=== PATIENT | female | born 1960 | race Caucasian/White ===

== ENCOUNTER 2016-09-12 15:32 | Emergency (ER) ==
[2016-09-12 15:32] VITALS: BMI 34.0
[2016-09-12 15:38] VITALS: BP 158/84; TEMP 98.4
--- NOTE | 2016-09-12 15:49 | ED.PDOC ---
General ED Provider: Dr. EMILY CALLAHAN JR Chief Complaint: Fall Stated Complaint: bg-slipped in tub and fell. has pain to right shoulder/neck and down arm, knot to forearm. pain to right wrist[End]1 hour 98.4 114 24 96% 158/84 10/10 pain mostly proximal forearm where she has a blue tender knot, morphine and lortab"make me itch" Time Seen by Physician: 15:48 Mode of Arrival: Walk-In Information Source: Patient Exam Limitations: No limitations Primary Care Provider: PANTERA MULLER Nursing and Triage Documentation Reviewed and Agree: No Review of Systems - Review Of Systems Constitutional: Reports: Malaise Eyes: Reports: No symptoms Ears, Nose, Mouth, Throat: Reports: No symptoms Respiratory: Reports: No symptoms Cardiac: Reports: No symptoms GI: Reports: No symptoms : Reports: No symptoms Musculoskeletal: Reports: Joint pain, Muscle pain Skin: Reports: Bruising, Change in color, Lumps Neurological: Reports: No symptoms Endocrine: Reports: No symptoms Hematologic/Lymphatic: Reports: No symptoms All Other Systems: Other Past Medical History - Past Medical History Previously Healthy: No Endocrine: Reports: Dyslipidemia Cardiovascular: Reports: CAD, Hypertension, CHF Respiratory: Reports: COPD Hematological: Reports: None Gastrointestinal: Reports: None, GERD Genitourinary: Reports: None, CKD Neuro/Psych: Reports: Migraine, Anxiety, Depression, Bipolar Disorder Musculoskeletal: Reports: Arthritis Cancer: Reports: None Last Menstrual Period: none Other Pertinent Past Medical History: fibrologramia - Surgical History General Surgical History: Reports: Hysterectomy, Tubal ligation, Cholecystectomy - Family History Family History: Reports: None - Social History Smoking Status: Current some day smoker Hx Substance Use: No Alcohol Screening: None Physical Exam - Physical Exam Appearance: Well-appearing, Obese Pain Distress: Moderate Musculoskeletal: Normal strength, ROM intact, No calf tenderness (tender upper extremity focal only on proximal volar forearm lesion), Edema Skin: Warm, Dry, Normal color Neurological: Sensation intact, Motor intact, Reflexes intact, Cranial nerves intact, Alert, Oriented Interpretation - Radiology Interpretation Radiology Interpretation By: Radiologist Radiology Results: Negative Exam Interpreted: CXR, Other (wrist elbow chest) Critical Care Note - Critical Care Note Total Time (mins): 0 Course - Course Orders, Labs, Meds: Orders Category Date Time Status Splint [ED SPLINT APPLICATION] .ONCE EMERGENCY 09/12/16 16:54 Active Ketorolac Tromethamine [Toradol] MEDS 09/12/16 15:53 Discontinued 60 mg IM ONCE STA CHEST, 1V AP ONLY Stat RADS 09/12/16 15:53 Completed ELBOW, RIGHT MIN 3 VIEWS Stat RADS 09/12/16 15:54 Completed WRIST, RIGHT 3 VIEWS Stat RADS 09/12/16 15:54 Completed Medications Discontinued Medications Generic Name Dose Route Start Last Admin Trade Name Freq PRN Reason Stop Dose Admin Ketorolac Tromethamine 60 mg 09/12/16 15:53 09/12/16 16:02 Toradol IM 09/12/16 15:54 60 mg ONCE STA Administration Vital Signs: Temp Pulse Resp BP Pulse Ox 09/12/16 15:32 98.4 F 114 H 24 158/84 H 96 Departure - Departure Time of Disposition: 16:50 Disposition: HOME SELF-CARE Discharge Problem: Falls Contusion of arm, right, multiple sites Qualifiers: Encounter type: initial encounter Qualifier Code: (S40.021A) Contusion of right upper arm, initial encounter Instructions: Contusion in Adults (ED) Condition: Good Pt referred to PMD for follow-up: Yes Additional Instructions: ice 20 minutes three times a day limit use of left arm for three days daily range of motion shoulder and elbow return if worse ibuprofen or Aleve for pain may use Toradol instead Prescriptions: Diphenhydramine HCl [Benadryl] 25 mg PO QID #30 capsule Ketorolac Tromethamine [Toradol] 10 mg PO QID PRN #20 tablet PRN Reason: PAIN Allergies/Adverse Reactions: Allergies acetaminophen [From [place]] Adverse Reaction (Verified 09/12/16 15:38) aspirin Adverse Reaction (Verified 09/12/16 15:38) codeine Adverse Reaction (Verified 09/12/16 15:38) hydrocodone [From [place]] Adverse Reaction (Verified 09/12/16 15:38) Penicillins Adverse Reaction (Verified 09/12/16 15:38) Home Medications: Ambulatory Orders Carvedilol 12.5 mg PO BID 04/26/15 Furosemide 40 mg PO DAILYWM 04/26/15 Albuterol Sulfate 0.083% Neb [Albuterol 0.083% Neb] 1 each IH QID PRN 08/27/15 Losartan Potassium [Cozaar] 50 mg PO DAILY 03/14/16 Simvastatin [Zocor] 20 mg PO DAILY 03/14/16 Clonazepam [Klonopin] 1 mg PO TID #90 03/16/16 Clonazepam 1 mg PO TID #90 06/08/16 Dextroamphetamine/Amphetamine [Adderall 30 Mg Tablet] 30 mg PO TID #60 Trazodone HCl 150 mg PO BEDTIME #30 06/08/16 Diphenhydramine HCl [Benadryl] 25 mg PO QID #30 capsule 09/12/16 Ketorolac Tromethamine [Toradol] 10 mg PO QID PRN #20 tablet 09/12/16
[2016-09-12] MEDS ORDERED: TORADOL IM STA (15:53)
--- NOTE | 2016-09-12 16:35 | DI ---
EXAM: RIGHT WRIST THREE VIEWS HISTORY: Wrist pain after fall FINDINGS: Bone and joint structures appear normal. No joint dislocation, displaced fracture or b one density abnormality. Soft tissues are within normal limits. No arthritic change. IMPRESSION: No fracture or dislocation identified.
--- NOTE | 2016-09-12 16:38 | DI ---
EXAM: Single frontal view of the chest HISTORY: Fall with neck pain. COMPARISON: Chest x-ray 06/22/[address] chest 10/30/2014. FINDINGS: The cardiomediastinal silhouette is normal. There is no pneumothorax or pleural effusion. There is no consolidation, nodule or mass. Left calcified granuloma is present. There is no osseo us abnormality or rib fracture identified. IMPRESSION: No acute cardiopulmonary process
--- NOTE | 2016-09-12 16:40 | DI ---
EXAM: Three views of the right elbow HISTORY: Fall with right elbow pain. COMPARISON: None FINDINGS: The radial head articulates normally with the capitellum. There is no displaced fracture o r dislocation of the right elbow. There is no lytic or blastic lesion. There are no displaced fat p ads. The joint space is maintained. IMPRESSION: No acute abnormality or displaced fracture of the right elbow.
[2016-09-12] MEDS ORDERED: BENADRYL IM STA (17:03)
== END 2016-09-12 17:26 | disposition home or self-care (01) ==
LOC: ED 15:32
DX: S40.021A Contusion of right upper arm, initial encounter (principal); S50.11XA Contusion of right forearm, initial encounter; M54.2 Cervicalgia; M25.531 Pain in right wrist; F17.210 Nicotine dependence, cigarettes, uncomplicated; W18.2XXA Fall in (into) shower or empty bathtub, initial encounter
CPT/HCPCS: 96372; 99283

== ENCOUNTER 2016-10-30 12:13 | Emergency (ER) ==
[2016-10-30 12:18] VITALS: BP 169/99; TEMP 98.2; BMI 36.9
[2016-10-30] MEDS ORDERED: DECADRON 4 MG/ML SDV IM STA (14:27)
[2016-10-30 15:00] LABS: ALBUMIN/GLOBULIN RATIO 1.08; ANION GAP 14.2; BILIRUBIN,TOTAL 0.31 mg/dL (0.00-1.20); BUN/CREATININE RATIO 27.65; CALCIUM 10.1 mg/dL (8.2-10.2); CREATININE 0.94 mg/dL (0.60-1.30); POTASSIUM 4.2 mmol/L (3.5-5.10); TOTAL PROTEIN 7.7 g/dL (6.4-8.2)
[2016-10-30 15:31] LABS: ERYTHROCYTE SEDIMENTATION RATE 34 mm/hr (0-20); ESR INTERNAL QC INTERNAL QC VALID
--- NOTE | 2016-10-30 15:50 | CT ---
EXAM: CT of the cervical spine without contrast History: Bilateral arm pain and trauma. Comparison: CT cervical spine 03/14/2016 Technique: Multiplanar CT images through the cervical spine were obtained without the administratio n of IV contrast Findings: Mild emphysema seen within the visualized lung apices. The visualized airway remains pat ent. No acute fracture or subluxation. Reversal of the normal cervical lordosis. No prevertebral soft t issue swelling. Predental space is not widened. Moderate disc space narrowing at C5-6 with osteoph ytes. Mild disc space narrowing seen elsewhere. C2-3: No significant bony central canal stenosis. Moderate bilateral bony neural foraminal narrowi ng secondary to uncovertebral and facet hypertrophy. C3-4: Mild bony central canal stenosis. Severe left and mild to moderate right bony neural foramin al narrowing secondary to uncovertebral and facet hypertrophy. C4-5: Mild to moderate bony central canal stenosis. Severe right and moderate left bony neural for aminal narrowing secondary to uncovertebral and facet hypertrophy. There are erosive osseous change s of the right facet joint. C5-6: Modest bony central canal stenosis. Severe left and moderate right bony neural foraminal paula rowing secondary to uncovertebral and facet hypertrophy. C6-7: Mild to moderate bony central canal stenosis. Moderate to severe right and moderate left bon y neural foraminal narrowing secondary to uncovertebral and facet hypertrophy. Impression: 1. No acute osseous abnormality of the cervical spine. 2. Degenerative changes with level by level analysis as detailed above. Erosive osseous changes of the right facet joint at C4-5. If pain persists, recommend further evaluation with MRI.
--- NOTE | 2016-10-30 16:23 | ED.PDOC ---
General ED Provider: Dr. KAELYN URIAS Chief Complaint: Non-specific Complaint Stated Complaint: out of pain meds and right shoulder pain Time Seen by Physician: 12:18 Mode of Arrival: Walk-In Information Source: Patient Exam Limitations: No limitations Primary Care Provider: LAMONT VALENTE Nursing and Triage Documentation Reviewed and Agree: Yes Musculoskeletal Complaint Exam - Shoulder Pain Complaint/Exam Mechanism of Injury: Reports: No known trauma Onset/Duration: chronic Symptoms Are: Still present Timing: Constant Initial Severity: Moderate Current Severity: Moderate Character: Reports: Aching Alleviating: Reports: None Aggravating: Reports: None Associated Signs and Symptoms: Denies: Swelling, Redness, Bruising, Fever, Weakness, Numbness, Tingling Related History: Reports: Similar episode Non-Orthopedic Risk Factors: Reports: None DVT Risk Factors: Reports: None Septic Arthritis Risk Factors: Reports: None Related Surgical History: Reports: None Limited Range of Motion: Present: Abduction, Adduction, Flexion, Extension, Internal rotation, External rotation, Rotator cuff muscles, Rotator cuff insertion Review of Systems - Review Of Systems Constitutional: Reports: No symptoms Eyes: Reports: No symptoms Ears, Nose, Mouth, Throat: Reports: No symptoms Respiratory: Reports: No symptoms Cardiac: Reports: No symptoms GI: Reports: No symptoms : Reports: No symptoms Musculoskeletal: Reports: Joint pain (right shoulder pain) Skin: Reports: No symptoms Neurological: Reports: No symptoms Endocrine: Reports: No symptoms Hematologic/Lymphatic: Reports: No symptoms All Other Systems: Reviewed and Negative Past Medical History - Past Medical History Previously Healthy: No Endocrine: Reports: Dyslipidemia Cardiovascular: Reports: CAD, Hypertension, CHF Respiratory: Reports: COPD Hematological: Reports: None Gastrointestinal: Reports: None, GERD Genitourinary: Reports: None, CKD Neuro/Psych: Reports: Migraine, Anxiety, Depression, Bipolar Disorder Musculoskeletal: Reports: Arthritis Cancer: Reports: None Last Menstrual Period: n/a Other Pertinent Past Medical History: fibrologramia - Surgical History General Surgical History: Reports: Hysterectomy, Tubal ligation, Cholecystectomy - Family History Family History: Reports: None - Social History Smoking Status: Current some day smoker Hx Substance Use: No Alcohol Screening: None Physical Exam - Physical Exam Appearance: Well-appearing, No pain distress, Well-nourished Eyes: AYESHA, EOMI, Conjunctiva clear ENT: Ears normal, Nose normal, Oropharynx normal Respiratory: Airway patent, Breath sounds clear, Breath sounds equal, Respirations nonlabored Cardiovascular: RRR, Pulses normal, No rub, No murmur GI/: Soft, Nontender, No masses, Bowel sounds normal, No Organomegaly Musculoskeletal: Normal strength, ROM intact, No edema, No calf tenderness Skin: Warm, Dry, Normal color Neurological: Sensation intact, Motor intact, Reflexes intact, Cranial nerves intact, Alert, Oriented Psychiatric: Affect appropriate, Mood appropriate Critical Care Note - Critical Care Note Total Time (mins): 0 Course - Course Hematology/Chemistry: 10/30/16 14:43 Orders, Labs, Meds: Lab Review 10/30/16 10/30/16 14:37 14:43 ESR 34 H Sodium 144 Potassium 4.2 Chloride 102 Carbon Dioxide 32 Anion Gap 14.2 BUN 26 H Creatinine 0.94 Estimated GFR (MDRD) 61.00 BUN/Creatinine Ratio 27.65 Glucose 98 Calcium 10.1 Total Bilirubin 0.31 AST 17 ALT 19 Alkaline Phosphatase 91 Total Protein 7.7 Albumin 4.0 Globulin 3.7 Albumin/Globulin Ratio 1.08 Orders Category Date Time Status COMPREHENSIVE METABOLIC PANEL Stat LAB 10/30/16 14:43 Completed ESR Stat LAB 10/30/16 14:37 Completed Dexamethasone 4 mg/ml Inj [Decadron 4 mg/ml Sdv] MEDS 10/30/16 14:27 Discontinued 8 mg IM ONCE STA CT CERVICAL SPINE W/O CONTRAST Stat RADS 10/30/16 14:38 Completed Medications Discontinued Medications Generic Name Dose Route Start Last Admin Trade Name Freq PRN Reason Stop Dose Admin Dexamethasone Sodium Phosphate 8 mg 10/30/16 14:27 10/30/16 14:41 Decadron 4 Mg/Ml Sdv IM 10/30/16 14:28 8 mg ONCE STA Administration Vital Signs: Temp Pulse Resp BP Pulse Ox 10/30/16 12:14 98.2 F 69 20 169/99 H 95 Departure - Departure Time of Disposition: 16:22 (sedrate is mildly elevated pt is placed on out pt steroids for 3 days and will examined by myself in a few days ) Disposition: HOME SELF-CARE Discharge Problem: Shoulder pain, right Instructions: Arthralgia (ED) Condition: Good Pt referred to PMD for follow-up: No Additional Instructions: Please call your Family Physician as soon as possible to schedule a follow-up appointment. Allergies/Adverse Reactions: Allergies acetaminophen [From [place]] Adverse Reaction (Verified 09/12/16 15:38) aspirin Adverse Reaction (Verified 09/12/16 15:38) codeine Adverse Reaction (Verified 09/12/16 15:38) hydrocodone [From [place]] Adverse Reaction (Verified 10/30/16 14:14) makes her nose itch Penicillins Adverse Reaction (Verified 09/12/16 15:38) Home Medications: Ambulatory Orders Carvedilol 12.5 mg PO BID 04/26/15 Furosemide 40 mg PO DAILYWM 04/26/15 Albuterol Sulfate 0.083% Neb [Albuterol 0.083% Neb] 1 each IH QID PRN 08/27/15 Losartan Potassium [Cozaar] 50 mg PO DAILY 03/14/16 Simvastatin [Zocor] 10 mg PO BEDTIME 03/14/16 Clonazepam [Klonopin] 1 mg PO TID PRN #90 03/16/16 Dextroamphetamine/Amphetamine [Adderall 30 Mg Tablet] 30 mg PO DAILY #60 Trazodone HCl 150 mg PO BEDTIME #30 06/08/16 Dextroamphetamine/Amphetamine [Adderall 15 mg Tablet] 15 mg PO BID 10/30/16 Ranitidine HCl 150 mg PO BID 10/30/16
[2016-10-30] MEDS ORDERED: ZOFRAN 4 MG/2 ML IM STA (16:38)
[2016-10-30] MEDS ORDERED: MORPHINE 4 MG/ML SYRINGE IM STA (16:38)
== END 2016-10-30 17:27 | disposition home or self-care (01) ==
LOC: ED 12:13
DX: M25.511 Pain in right shoulder (principal); R70.0 Elevated erythrocyte sedimentation rate; I10 Essential (primary) hypertension; F17.210 Nicotine dependence, cigarettes, uncomplicated; Z79.899 Other long term (current) drug therapy
CPT/HCPCS: 36415; 80053; 82550; 85651; 96372; 99283

== ENCOUNTER 2016-12-11 11:24 | Emergency (ER) ==
[2016-12-11 11:29] VITALS: BP 144/93; TEMP 98.2; BMI 34.0
--- NOTE | 2016-12-11 11:46 | ED.PDOC ---
General ED Provider: Dr. KAELYN URIAS Chief Complaint: Neck Pain Non-Injury Stated Complaint: neck and right upper ext chronic pain Time Seen by Physician: 11:30 (seen with cheryl at all times ) Mode of Arrival: Walk-In Information Source: Patient Exam Limitations: No limitations Primary Care Provider: LAMONT VALENTE Nursing and Triage Documentation Reviewed and Agree: Yes (no trauma chronic issue) Musculoskeletal Complaint Exam - Neck Pain Complaint/Exam Mechanism of Injury: Reports: No known trauma Onset/Duration: chronic Symptoms Are: Still present Timing: Constant Episodes Lasting: Weeks Initial Severity: Moderate Current Severity: Moderate Character: Reports: Aching, Throbbing, Spasmodic Aggravating: Reports: None Alleviating: Reports: None Associated Signs and Symptoms: Denies: Swelling, Redness, Bruising, Fever, Nuchal rigidity, Weakness, Headache, Paresthesia Related History: Reports: Similar episode Nexus Low Risk Criteria: No post-midline CS tender, No evidence of intoxicat., No Altered LOC, No focal neuro deficit, No distracting injuries Differential Diagnoses: Sprain, Strain Review of Systems - Review Of Systems Constitutional: Reports: No symptoms Eyes: Reports: No symptoms Ears, Nose, Mouth, Throat: Reports: No symptoms Respiratory: Reports: No symptoms Cardiac: Reports: No symptoms GI: Reports: No symptoms : Reports: No symptoms Musculoskeletal: Reports: Neck pain, Other (arm pain) Skin: Reports: No symptoms Neurological: Reports: No symptoms Endocrine: Reports: No symptoms Hematologic/Lymphatic: Reports: No symptoms All Other Systems: Reviewed and Negative Past Medical History - Past Medical History Previously Healthy: No Endocrine: Reports: Dyslipidemia Cardiovascular: Reports: CAD, Hypertension, CHF Respiratory: Reports: COPD Hematological: Reports: None Gastrointestinal: Reports: None, GERD Genitourinary: Reports: None, CKD Neuro/Psych: Reports: Migraine, Anxiety, Depression, Bipolar Disorder Musculoskeletal: Reports: Arthritis Cancer: Reports: None Last Menstrual Period: n/a Other Pertinent Past Medical History: fibrologramia - Surgical History General Surgical History: Reports: Hysterectomy, Tubal ligation, Cholecystectomy - Family History Family History: Reports: None - Social History Smoking Status: Current some day smoker Hx Substance Use: No Alcohol Screening: None Physical Exam - Physical Exam Appearance: Well-appearing, No pain distress, Well-nourished Eyes: AYESHA, EOMI, Conjunctiva clear ENT: Ears normal, Nose normal, Oropharynx normal Respiratory: Airway patent, Breath sounds clear, Breath sounds equal, Respirations nonlabored Cardiovascular: RRR, Pulses normal, No rub, No murmur GI/: Soft, Nontender, No masses, Bowel sounds normal, No Organomegaly Musculoskeletal: Normal strength, ROM intact, No edema, No calf tenderness Skin: Warm, Dry, Normal color Neurological: Sensation intact, Motor intact, Reflexes intact, Cranial nerves intact, Alert, Oriented Psychiatric: Affect appropriate, Mood appropriate Critical Care Note - Critical Care Note Total Time (mins): 0 Course - Course Orders, Labs, Meds: Orders Category Date Time Status EKG-(ED ONLY) Stat CARDIO 12/11/16 11:41 Stop Req CBC W/ AUTO DIFF Stat LAB 12/11/16 11:40 Stop Req COMPREHENSIVE METABOLIC PANEL Stat LAB 12/11/16 11:40 Stop Req CREATINE KINASE Stat LAB 12/11/16 11:40 Stop Req TROPONIN I Stat LAB 12/11/16 11:[address] CERVICAL SPINE W/O CONTRAST Stat RADS 12/11/16 11:41 Stop Req ELBOW, RIGHT MIN 3 VIEWS Stat RADS 12/11/16 11:41 Stop Req HUMERUS, RIGHT 2 VIEWS Stat RADS 12/11/16 11:41 Stop Req SHOULDER, RIGHT MIN 2V Stat RADS 12/11/16 11:41 Stop Req Vital Signs: Temp Pulse Resp BP Pulse Ox 12/11/16 11:26 98.2 F 78 16 144/93 H 96 Departure - Departure Time of Disposition: 11:46 (left AMA .) Disposition: HOME SELF-CARE Discharge Problem: Neck pain Instructions: Neck Pain (ED) Condition: Good Pt referred to PMD for follow-up: No Allergies/Adverse Reactions: Allergies aspirin Adverse Reaction (Verified 09/12/16 15:38) codeine Adverse Reaction (Verified 09/12/16 15:38) Penicillins Adverse Reaction (Verified 09/12/16 15:38) Home Medications: Ambulatory Orders Carvedilol 12.5 mg PO BID 04/26/15 Albuterol Sulfate 0.083% Neb [Albuterol 0.083% Neb] 1 each IH QID PRN 08/27/15 Losartan Potassium [Cozaar] 50 mg PO DAILY 03/14/16 Simvastatin [Zocor] 10 mg PO BEDTIME 03/14/16 Clonazepam [Klonopin] 1 mg PO TID PRN #90 03/16/16 Dextroamphetamine/Amphetamine [Adderall 30 Mg Tablet] 30 mg PO DAILY #60 Trazodone HCl 150 mg PO BEDTIME #30 06/08/16 Dextroamphetamine/Amphetamine [Adderall 15 mg Tablet] 15 mg PO BID 10/30/16
== END 2016-12-11 11:50 | disposition left against medical advice (07) ==
LOC: ED 11:24
DX: M54.2 Cervicalgia (principal); M79.601 Pain in right arm; G89.29 Other chronic pain; F17.210 Nicotine dependence, cigarettes, uncomplicated
CPT/HCPCS: 99284

== ENCOUNTER 2017-11-04 19:08 | Emergency (ER) ==
[2017-11-04 19:16] VITALS: BMI 39.5
[2017-11-04] MEDS ORDERED: ATIVAN IM STA (19:41)
[2017-11-04] MEDS ORDERED: ASPIRIN CHEWABLE PO STA (19:41)
[2017-11-04] MEDS ORDERED: CATAPRES PO STA ×2 (19:41→22:11)
[2017-11-04] MEDS ORDERED: ZOFRAN 4 MG/2 ML IM STA (19:41)
[2017-11-04] MEDS ORDERED: MORPHINE 2 MG/ML SYRINGE IM STA (19:41)
--- NOTE | 2017-11-04 21:41 | CT ---
Exam: CTA chest with intravenous contrast, PE protocol. MIP reformats are provided for interpretati on Comparison: 06/29/2013. Reason for exam: Chest pain, elevated D-dimer. Patchy ground-glass is seen in the left lung base. No pneumothorax, pleural effusion, or focal consolidation. The thyroid appears grossly unremarkable. The aorta is normal in course and caliber. No main, proximal, or segmental pulmonary arterial filling defect is seen. The heart is not enlarged. No suspicious appearing osteoblastic or osteolytic lesions. FINDINGS: 1. No main, proximal, or segmental pulmonary arterial filling defect is seen. 2. Mild patchy ground-glass in left lung base likely inflammatory. 3. No pneumothorax, pleural effusion, or focal consolidation. Report faxed at [id number] hours on 11/04/2017.
[2017-11-04 21:44] VITALS: TEMP 98.8
--- NOTE | 2017-11-04 22:09 | ED.PDOC ---
General ED Provider: Dr. ESTEE PIRES Chief Complaint: Chest Pain Stated Complaint: Came for the right side chest pain , she is been upset for 3 days, because of family problems, started having palpitation. BP is elevated Time Seen by Physician: 19:15 Mode of Arrival: Walk-In Information Source: Patient Primary Care Provider: MICHELLE BARILLAS Nursing and Triage Documentation Reviewed and Agree: Yes Reviewed sepsis parameters & appropriate labs ordered?: No System Inflammatory Response Syndrome: Not Applicable Sepsis Protocol: For patient's 13 years and over: Temp is 96.8 and below OR 101 and greater Pulse >90 BPM Resp >20/minute Acutely Altered Mental Status Are patient's symptoms suggestive of a new infection, such as: -Pneumonia -Skin, Soft Tissue -Endocarditis -UTI -Bone, Joint Infection -Implantable Device -Acute Abdominal Infection -Wound Infection -Meningitis -Blood Stream Catheter Infection -Unknown Cardiovascular Complaint Exam - Chest Pain Complaint/Exam Onset: Gradual Symptoms Are: Still present Timing: Constant Initial Severity: Moderate Current Severity: Moderate Location: Reports: Right anterior, Right lateral Pain Radiates: Reports: None Character: Reports: Aching, Tightness Aggravating: Reports: None Alleviating: Reports: None Associated Signs and Symptoms: Denies: Diaphoresis, Nausea, Vomiting, Fever, Palpitations, Cough, Hemoptysis, Back pain, Abdominal pain, Dizziness, Short of air, Calf pain, Calf swelling Related History: Reports: Similar episode Related Surgical History: Reports: None History of Healthcare-Acquired Pneumonia: Reports: No AMI/ACS Risk Factors: Reports: None TAD Risk Factors: Reports: None Pulmonary Embolism Risk Factors: Reports: None Prior Care for this Complaint: No Recent Stress Test: No Recent Echo/LV Function: No JVD Present: No Subcutaneous Emphysema Present: No Diminshed Breath Sounds: No Reproducible Chest Wall Pain: No Bilateral Pulses Present: No Unequal Pulses Noted: No If Risk Factors for AMI/ACS Consider: EKG, Cardiac Enzymes, Serial Studies, Oxygen, Aspirin Differential Diagnoses: ACS, CHF, Chest Wall Pain Review of Systems - Review Of Systems Constitutional: Reports: No symptoms Eyes: Reports: No symptoms Ears, Nose, Mouth, Throat: Reports: No symptoms Respiratory: Reports: No symptoms Cardiac: Reports: Chest pain GI: Reports: No symptoms : Reports: No symptoms Musculoskeletal: Reports: No symptoms Skin: Reports: No symptoms Neurological: Reports: No symptoms Endocrine: Reports: No symptoms Hematologic/Lymphatic: Reports: No symptoms All Other Systems: Reviewed and Negative Past Medical History - Past Medical History Previously Healthy: No Endocrine: Reports: Dyslipidemia Cardiovascular: Reports: CAD, Hypertension, CHF Respiratory: Reports: COPD Hematological: Reports: None Gastrointestinal: Reports: None, GERD Genitourinary: Reports: None, CKD Neuro/Psych: Reports: Migraine, Anxiety, Depression, Bipolar Disorder Musculoskeletal: Reports: Arthritis Cancer: Reports: None Last Menstrual Period: 2016 Other Pertinent Past Medical History: fibrologramia - Surgical History General Surgical History: Reports: Hysterectomy, Tubal ligation, Cholecystectomy - Family History Family History: Reports: None - Social History Smoking Status: Current some day smoker, Light tobacco smoker Hx Substance Use: No Alcohol Screening: None - Immunizations Tetanus Shot up to Date: Yes Physical Exam - Physical Exam Appearance: Well-appearing, No pain distress, Well-nourished Eyes: AYESHA, EOMI, Conjunctiva clear ENT: Ears normal, Nose normal, Oropharynx normal Respiratory: Airway patent, Breath sounds clear, Breath sounds equal, Respirations nonlabored Cardiovascular: RRR, Pulses normal, No rub, No murmur GI/: Soft, Nontender, No masses, Bowel sounds normal, No Organomegaly Musculoskeletal: Normal strength, ROM intact, No edema, No calf tenderness Skin: Warm, Dry, Normal color Neurological: Sensation intact, Motor intact, Reflexes intact, Cranial nerves intact, Alert, Oriented Psychiatric: Affect appropriate, Mood appropriate Interpretation - Radiology Interpretation Radiology Interpretation By: ED Physician Radiology Results: Negative Exam Interpreted: CXR - EKG Interpretation Time of EKG #1: 19:30 Rate: Normal Rhythm: Sinus Ectopy: None Re-Evaluation - Re-Evaluation Time of Re-Evaluation: 23:07 Status: Improved Critical Care Note - Critical Care Note Total Time (mins): 30 Course - Course Hematology/Chemistry: 11/04/17 19:50 11/04/17 19:50 Orders, Labs, Meds: Lab Review 11/04/17 11/04/17 11/04/17 19:50 19:50 19:50 WBC 9.20 RBC 4.76 Hgb 13.5 Hct 39.9 MCV 83.8 MCH 28.4 MCHC 33.8 RDW Coeff of Sheldon 13.7 Plt Count 217 Immature Gran % (Auto) 0.7 Neut % (Auto) 67.3 Lymph % (Auto) 22.2 Lee % (Auto) 6.8 Eos % (Auto) 2.3 Baso % (Auto) 0.7 Immature Gran # (Auto) 0.1 Neut # (Auto) 6.2 Lymph # (Auto) 2.0 Lee # (Auto) 0.6 Eos # (Auto) 0.2 Baso # (Auto) 0.1 D-Dimer (Manual) Sodium 143 Potassium 3.8 Chloride 103 Carbon Dioxide 26 Anion Gap 17.8 BUN 17 Creatinine 0.80 Estimated GFR (MDRD) 74.00 BUN/Creatinine Ratio 21.25 Glucose 180 H Calcium 9.3 Total Bilirubin 0.2 AST 21 ALT 37 Alkaline Phosphatase 89 Total Creatine Kinase 30 Troponin I 0.0140 B-Natriuretic Peptide 151 H Total Protein 7.0 Albumin 3.3 L Globulin 3.7 Albumin/Globulin Ratio 0.89 11/04/17 19:50 WBC RBC Hgb Hct MCV MCH MCHC RDW Coeff of Sheldon Plt Count Immature Gran % (Auto) Neut % (Auto) Lymph % (Auto) Lee % (Auto) Eos % (Auto) Baso % (Auto) Immature Gran # (Auto) Neut # (Auto) Lymph # (Auto) Lee # (Auto) Eos # (Auto) Baso # (Auto) D-Dimer (Manual) 904.99 Sodium Potassium Chloride Carbon Dioxide Anion Gap BUN Creatinine Estimated GFR (MDRD) BUN/Creatinine Ratio Glucose Calcium Total Bilirubin AST ALT Alkaline Phosphatase Total Creatine Kinase Troponin I B-Natriuretic Peptide Total Protein Albumin Globulin Albumin/Globulin Ratio Orders Category Date Time Status EKG-(ED ONLY) Stat CARDIO 11/04/17 19:37 Completed NPO REMINDER: IMAGING ONCE CARE 11/04/17 20:51 Completed IV [ED IV/MEDIPORT/POWERPORT] .ONCE EMERGENCY 11/04/17 21:10 Active BNP [B-TYPE NATRIURETIC PEPTIDE] Stat LAB 11/04/17 19:50 Completed CBC W/ AUTO DIFF Stat LAB 11/04/17 19:50 Completed COMPREHENSIVE METABOLIC PANEL Stat LAB 11/04/17 19:50 Completed CREATINE KINASE Stat LAB 11/04/17 19:50 Completed D-DIMER Stat LAB 11/04/17 19:50 Completed TROPONIN I Stat LAB 11/04/17 19:50 Completed 0.9 % Sodium Chloride [Saline Flush] MEDS 11/04/17 21:10 Ordered 1 syr IVF PRN PRN Aspirin [Aspirin Chewable] MEDS 11/04/17 19:41 Discontinued 324 mg PO ONCE STA Clonidine HCl [Catapres] MEDS 11/04/17 19:41 Discontinued 0.1 mg PO ONCE STA Clonidine HCl [Catapres] MEDS 11/04/17 22:11 Discontinued 0.1 mg PO ONCE STA Lorazepam Inj [Ativan] MEDS 11/04/17 19:41 Discontinued 1 mg IM ONCE STA Morphine Sulfate [Morphine 2 mg/ml Syringe] MEDS 11/04/17 19:41 Discontinued 2 mg IM ONCE STA Ondansetron HCl/Pf [Zofran 4 mg/2 ml] MEDS 11/04/17 19:41 Discontinued 4 mg IM ONCE STA CHEST, 2 VIEWS PA & LAT Stat RADS 11/04/17 19:[address] CHEST PE PROTOCOL Stat RADS 11/04/17 20:51 Completed Medications Generic Name Dose Route Start Last Admin Trade Name Freq PRN Reason Stop Dose Admin Sodium Chloride 1 syr 11/04/17 21:10 Saline Flush IVF PRN PRN To flush IV Discontinued Medications Generic Name Dose Route Start Last Admin Trade Name Freq PRN Reason Stop Dose Admin Aspirin 324 mg 11/04/17 19:41 11/04/17 19:56 Aspirin Chewable PO 11/04/17 19:42 324 mg ONCE STA Administration Clonidine 0.1 mg 11/04/17 19:41 11/04/17 19:57 Catapres PO 11/04/17 19:42 0.1 mg ONCE STA Administration Clonidine 0.1 mg 11/04/17 22:11 11/04/17 22:17 Catapres PO 11/04/17 22:12 0.1 mg ONCE STA Administration Lorazepam 1 mg 11/04/17 19:41 11/04/17 19:57 Ativan IM 11/04/17 19:42 1 mg ONCE STA Administration Morphine Sulfate 2 mg 11/04/17 19:41 11/04/17 19:56 Morphine 2 Mg/Ml Syringe IM 11/04/17 19:42 2 mg ONCE STA Administration Ondansetron HCl 4 mg 11/04/17 19:41 11/04/17 19:57 Zofran 4 Mg/2 Ml IM 11/04/17 19:42 4 mg ONCE STA Administration Vital Signs: Temp Pulse Resp BP Pulse Ox 11/04/17 22:55 67 20 144/98 H 94 L 11/04/17 21:43 98.8 F 72 14 174/103 H 96 11/04/17 19:09 99.6 F 78 20 179/108 H 96 FEI Risk Score FEI Risk Score: Risk Score Odds of by 30D 0 0.1 (0.1-0.2) 1 0.3 (0.2-0.3) 2 0.4 (0.3-0.5) 3 0.7 (0.6-0.9) 4 1.2 (1.0-1.5) 5 2.2 (1.9-2.6) 6 3.0 (2.5-3.6) 7 4.8 (3.8-6.1) Departure - Departure Time of Disposition: 22:12 Disposition: HOME SELF-CARE Discharge Problem: Chest pain, Panic attack Instructions: Chest Pain (DC) Condition: Stable Pt referred to PMD for follow-up: Yes IPMP verified?: No Additional Instructions: Increase hydration keep f/u with PMD keep checking Bp Prescriptions: Alprazolam [Xanax] 0.25 mg PO BID #20 tablet Lisinopril 20 mg PO BID #20 tablet Allergies/Adverse Reactions: Allergies aspirin Adverse Reaction (Verified 09/12/16 15:38) codeine Adverse Reaction (Verified 09/12/16 15:38) Penicillins Adverse Reaction (Verified 09/12/16 15:38) Home Medications: Ambulatory Orders Furosemide 40 mg PO DAILY 05/28/17 Risperidone 1 mg PO BEDTIME 06/01/17 Alprazolam [Xanax] 0.25 mg PO BID #20 tablet 11/04/17 Lisinopril 10 mg PO BID 11/04/17 Lisinopril 20 mg PO BID #20 tablet 11/04/17 Disposition Discussed With: Patient, Family
[2017-11-04 22:56] VITALS: BP 144/98
[2017-11-04] MEDS ORDERED: ZESTRIL PO STA (23:08)
--- NOTE | 2017-11-05 07:20 | DI ---
EXAM: Chest two view, frontal and lateral views. HISTORY: Chest pain. COMPARISON: 09/12/2016. FINDINGS: The heart size is normal. There is no pulmonary vascular congestion. The lungs are clear save for calcified granulomatous changes. No pleural effusion or pneumothorax is seen. No acute os seous abnormality identified. Since the prior study, there has been no significant interval change. IMPRESSION: No acute cardiopulmonary process.
== END 2017-11-04 23:25 | disposition home or self-care (01) ==
LOC: ED 19:08
DX: R07.9 Chest pain, unspecified (principal); F41.0 Panic disorder [episodic paroxysmal anxiety]; E78.5 Hyperlipidemia, unspecified; I25.10 Atherosclerotic heart disease of native coronary artery without angina pectoris; I10 Essential (primary) hypertension; N18.9 Chronic kidney disease, unspecified; K21.9 Gastro-esophageal reflux disease without esophagitis; F17.210 Nicotine dependence, cigarettes, uncomplicated; Z79.899 Other long term (current) drug therapy
CPT/HCPCS: 36415; 80053; 82550; 83880; 84484; 85025; 85379; 93005; 93010; 96372; 99284

== ENCOUNTER 2017-11-26 10:40 | Outpatient (CLI) ==
--- NOTE | 2017-11-26 12:16 | DI ---
Exam: Chest two-view HISTORY: Acute upper respiratory infection. Comparison: 11/04/2017. FINDINGS: Two views of the chest demonstrate moderately expanded lungs with no evidence of pneumonia or edema. The heart is normal in size and configuration. The thoracic aorta is partially calcified . Calcified granulomata are noted. The pulmonary vasculature is not congested. The skeletal structu res are intact. There are degenerative findings in the spine. IMPRESSION: No acute cardiopulmonary disease. Atherosclerosis and prior granulomatosis.
== END 2017-11-26 10:41 | disposition home or self-care (01) ==
LOC: RAD 10:40
PROVIDERS: ATTEND Emergency Medicine
DX: J06.9 Acute upper respiratory infection, unspecified (principal)

== ENCOUNTER 2017-12-20 13:43 | Inpatient (IN) ==
--- NOTE | 2017-12-20 15:14 | ED.PDOC ---
General ED Provider: Dr. PATRIZIA PATTEN Chief Complaint: Chest Pain Stated Complaint: Was exertional today and became dyspneic and chest discomfort. Became extremely anxious and a friend told her she may be in CHF so was brought to ER. Sighing and moaning in pain grabbing midepigastrium Time Seen by Physician: 14:50 Mode of Arrival: Wheelchair Information Source: Patient Exam Limitations: No limitations Primary Care Provider: ESTEE GUIDO Seen Within Last 72 Hours for Same Complaint By: ED Nursing and Triage Documentation Reviewed and Agree: Yes Reviewed sepsis parameters & appropriate labs ordered?: Yes System Inflammatory Response Syndrome: Not Applicable Sepsis Protocol: For patient's 13 years and over: Temp is 96.8 and below OR 101 and greater Pulse >90 BPM Resp >20/minute Acutely Altered Mental Status Are patient's symptoms suggestive of a new infection, such as: -Pneumonia -Skin, Soft Tissue -Endocarditis -UTI -Bone, Joint Infection -Implantable Device -Acute Abdominal Infection -Wound Infection -Meningitis -Blood Stream Catheter Infection -Unknown System Inflammatory Response Syndrome: Not Applicable Cardiovascular Complaint Exam - Chest Pain Complaint/Exam Symptoms Are: Resolved Timing: Intermittent Initial Severity: Severe Current Severity: Mild Location: Reports: Lower sternal, Left lateral Pain Radiates: Reports: None Character: Reports: Heaviness, Pressure, Squeezing Aggravating: Reports: Movement, Deep breaths Alleviating: Reports: Rest, Upright position Associated Signs and Symptoms: Reports: Nausea, Abdominal pain, Short of air Related History: Reports: Similar episode Related Surgical History: Reports: Cardiac Cath AMI/ACS Risk Factors: Reports: Obesity, Family history, Hypertension, CHF, Dyslipidemia. Denies: Cocaine use Review of Systems - Review Of Systems Constitutional: Reports: No symptoms Eyes: Reports: No symptoms Ears, Nose, Mouth, Throat: Reports: No symptoms Respiratory: Reports: No symptoms, Cough, Short of air Cardiac: Reports: No symptoms, Chest pain, Lightheadedness GI: Reports: No symptoms : Reports: No symptoms Musculoskeletal: Reports: No symptoms Skin: Reports: No symptoms Neurological: Reports: No symptoms Endocrine: Reports: No symptoms Hematologic/Lymphatic: Reports: No symptoms All Other Systems: Reviewed and Negative Past Medical History - Past Medical History Previously Healthy: No Endocrine: Reports: Dyslipidemia Cardiovascular: Reports: CAD, Hypertension, CHF Respiratory: Reports: COPD Hematological: Reports: None Gastrointestinal: Reports: None, GERD Genitourinary: Reports: None, CKD Neuro/Psych: Reports: Migraine, Anxiety, Depression, Bipolar Disorder Musculoskeletal: Reports: Arthritis Cancer: Reports: None Last Menstrual Period: hysterectomy Other Pertinent Past Medical History: fibrologramia - Surgical History General Surgical History: Reports: Hysterectomy, Tubal ligation, Cholecystectomy - Family History Family History: Reports: None - Social History Smoking Status: Current some day smoker, Light tobacco smoker Hx Substance Use: No Alcohol Screening: Occasionally Course - Course Hematology/Chemistry: 12/20/17 15:38 12/20/17 15:38 Orders, Labs, Meds: Lab Review 12/20/17 12/20/17 12/20/17 15:20 15:38 15:38 WBC 12.24 H RBC 4.91 Hgb 13.8 Hct 42.2 MCV 85.9 MCH 28.1 MCHC 32.7 RDW Coeff of Sheldon 15.1 H Plt Count 299 Immature Gran % (Auto) 0.8 Neut % (Auto) 69.1 Lymph % (Auto) 19.4 Miller % (Auto) 8.4 Eos % (Auto) 1.7 Baso % (Auto) 0.6 Immature Gran # (Auto) 0.1 Neut # (Auto) 8.5 H Lymph # (Auto) 2.4 Miller # (Auto) 1.0 Eos # (Auto) 0.2 Baso # (Auto) 0.1 Puncture Site Rrad O2 Saturation 96.0 ABG pH 7.468 H ABG pCO2 35.8 ABG pO2 75.0 L ABG HCO3 25.9 ABG Total CO2 27 ABG Base Excess 2 Charles Test + FiO2 % 21.0 Sodium 144 Potassium 3.7 Chloride 104 Carbon Dioxide 25 Anion Gap 18.7 BUN 42 H Creatinine 3.16 H Estimated GFR (MDRD) 15.00 BUN/Creatinine Ratio 13.29 Glucose 145 H Lactic Acid Calcium 10.1 Total Bilirubin 0.7 AST 15 ALT 15 Alkaline Phosphatase 85 Troponin I 0.0170 B-Natriuretic Peptide Total Protein 8.1 Albumin 3.8 Globulin 4.3 Albumin/Globulin Ratio 0.88 Influ A Molecular Assay Influ B Molecular Assay 12/20/17 12/20/17 12/20/17 15:38 15:38 16:23 WBC RBC Hgb Hct MCV MCH MCHC RDW Coeff of Sheldon Plt Count Immature Gran % (Auto) Neut % (Auto) Lymph % (Auto) Miller % (Auto) Eos % (Auto) Baso % (Auto) Immature Gran # (Auto) Neut # (Auto) Lymph # (Auto) Miller # (Auto) Eos # (Auto) Baso # (Auto) Puncture Site O2 Saturation ABG pH ABG pCO2 ABG pO2 ABG HCO3 ABG Total CO2 ABG Base Excess Charles Test FiO2 % Sodium Potassium Chloride Carbon Dioxide Anion Gap BUN Creatinine Estimated GFR (MDRD) BUN/Creatinine Ratio Glucose Lactic Acid 9.9 Calcium Total Bilirubin AST ALT Alkaline Phosphatase Troponin I B-Natriuretic Peptide < 10 Total Protein Albumin Globulin Albumin/Globulin Ratio Influ A Molecular Assay Negative by naat Influ B Molecular Assay Negative by naat Orders Category Date Time Status ABG DRAW REQUEST Stat CARDIO 12/20/17 15:21 Completed EKG-(ED ONLY) Stat CARDIO 12/20/17 15:20 Completed IV [ED IV/MEDIPORT/POWERPORT] .ONCE EMERGENCY 12/20/17 15:20 Active ABG Stat LAB 12/20/17 15:20 Completed BLOOD CULTURE (ED ONLY) Stat LAB 12/20/17 15:38 Received BNP [B-TYPE NATRIURETIC PEPTIDE] Stat LAB 12/20/17 15:38 Completed CBC W/ AUTO DIFF Stat LAB 12/20/17 15:38 Completed CMP [COMPREHENSIVE METABOLIC PANEL] Stat LAB 12/20/17 15:38 Completed FLU A & B MOLECULAR [FLU A/B MOLECULAR] Stat LAB 12/20/17 16:23 Completed LACTIC ACID Stat LAB 12/20/17 15:38 Completed TROPONIN I Stat LAB 12/20/17 15:38 Completed 0.9 % Sodium Chloride [Saline Flush] MEDS 12/20/17 15:20 Active 1 syr IVF PRN PRN Lorazepam [Ativan] MEDS 12/20/17 15:23 Discontinued 0.5 mg IVP ONCE STA Pantoprazole Sodium [Protonix IV] MEDS 12/20/17 15:22 Discontinued 40 mg IVP ONCE STA CHEST, 1V AP ONLY Stat RADS 12/20/17 15:20 Completed Medications Generic Name Dose Route Start Last Admin Trade Name Freq PRN Reason Stop Dose Admin Sodium Chloride 1 syr 12/20/17 15:20 12/20/17 15:46 Saline Flush IVF 1 syr PRN PRN Administration To flush IV Discontinued Medications Generic Name Dose Route Start Last Admin Trade Name Bharti PRN Reason Stop Dose Admin Lorazepam 0.5 mg 12/20/17 15:23 12/20/17 15:47 Ativan IVP 12/20/17 15:24 0.5 mg ONCE STA Administration Pantoprazole Sodium 40 mg 12/20/17 15:22 12/20/17 15:43 Protonix Iv IVP 12/20/17 15:23 40 mg ONCE STA Administration Vital Signs: Temp Pulse Resp BP Pulse Ox 12/20/17 13:45 98.6 F 93 H 24 105/70 94 L FEI Risk Score FEI Risk Score: Risk Score Odds of by 30D 0 0.1 (0.1-0.2) 1 0.3 (0.2-0.3) 2 0.4 (0.3-0.5) 3 0.7 (0.6-0.9) 4 1.2 (1.0-1.5) 5 2.2 (1.9-2.6) 6 3.0 (2.5-3.6) 7 4.8 (3.8-6.1) Departure - Departure Time of Disposition: 17:30 Disposition: ADMITTED INPATIENT Discharge Problem: Acute renal failure, CHF NYHA class III (symptoms with mildly strenuous activities) Condition: Poor IPMP verified?: No Additional Instructions: Discussed with Dr Ulloa for admission orders Allergies/Adverse Reactions: Allergies aspirin Adverse Reaction (Verified 12/20/17 13:55) codeine Adverse Reaction (Verified 12/20/17 13:55) Penicillins Adverse Reaction (Verified 12/20/17 13:55) Home Medications: Ambulatory Orders Clonazepam 1 mg PO TID 11/12/17 Dextroamphetamine/Amphetamine [Dextroamp-Amphetamin 30 Mg Tab] 30 mg PO BID 04/23 Trazodone HCl 150 mg PO BEDTIME 11/12/17 Disposition Discussed With: Patient (Discussed with Dr Ulloa for admission orders)
[2017-12-20] MEDS ORDERED: PROTONIX IV IVP STA (15:22)
[2017-12-20] MEDS ORDERED: ATIVAN IVP STA (15:23)
--- NOTE | 2017-12-20 16:23 | DI ---
EXAM: Chest one view HISTORY: Chest pain congestion COMPARISON: 11/26/2017 TECHNIQUE: Single view of the chest was performed FINDINGS: No airspace consolidation. Granulomatous calcification. There is no pleural effusion or pneumothorax. The heart is normal in size. The mediastinal contour is normal. There are no acute a bnormalities of the bones. IMPRESSION: No acute cardiopulmonary process.
[2017-12-20] MEDS ORDERED: SODIUM CHLORIDE 1,000 ML IV STA (17:38)
[2017-12-20 18:34] VITALS: BMI 38.9
[2017-12-20] MEDS ORDERED: DEMEROL 50 MG/ML VIAL IVP PRN (20:25)
[2017-12-20] MEDS ORDERED: NON-FORMULARY MEDICATION (Trazodone Hcl [Trazodone Hcl] 150 MG) PO SCH (21:00)
[2017-12-20] MEDS ORDERED: COREG PO SCH (21:00)
[2017-12-20] MEDS ORDERED: [UNRECOGNIZED DRUG - OTHER] PO SCH (21:00)
[2017-12-20] MEDS ORDERED: DEXTROAMPHETAMINE PO SCH (21:00)
[2017-12-20] MEDS ORDERED: NON-FORMULARY MEDICATION (Clonazepam [Clonazepam] 1 MG) PO SCH (21:00)
[2017-12-20] MEDS ORDERED: NON-FORMULARY MEDICATION (Lisinopril [Lisinopril] 20 MG) PO SCH (21:00)
[2017-12-20] MEDS ORDERED: AMPHETAMINE PO SCH (21:00)
[2017-12-20] MEDS ORDERED: MAXITROL OPTH SUSP OP SCH (21:00)
[2017-12-20] MEDS: SODIUM CHLORIDE 1,000 ML IV SCH (21:33)
[2017-12-20] MEDS ORDERED: COREG ONE (21:41)
[2017-12-20] MEDS ORDERED: DEMEROL 50 MG/ML VIAL ONE (21:41)
[2017-12-20] MEDS ORDERED: KLONOPIN ONE (21:42)
[2017-12-20] MEDS ORDERED: ZESTRIL ONE (21:43)
[2017-12-20] MEDS ORDERED: DESYREL ONE (21:43)
[2017-12-20] MEDS: DUONEB NEB SCH (22:05)
[2017-12-20] MEDS: SOLU-MEDROL 125 MG IVP SCH (22:08)
[2017-12-20] MEDS ORDERED: SODIUM CHLORIDE 250 ML IV ONE (22:25)
[2017-12-20] MEDS: PREDNISONE PO SCH (23:21)
[2017-12-21] MEDS: DUONEB NEB SCH ×4 (04:35→22:14)
[2017-12-21] MEDS: SOLU-MEDROL 125 MG IVP SCH ×3 (05:37→22:10)
[2017-12-21] MEDS ORDERED: LASIX TAB PO SCH (06:30)
[2017-12-21] MEDS ORDERED: NON-FORMULARY MEDICATION (Mometasone Furoate [Nasonex] 17 GM) NS SCH (09:00)
[2017-12-21] MEDS: PREDNISONE PO SCH (09:00)
[2017-12-21] MEDS ORDERED: NON-FORMULARY MEDICATION (Loratadine [Claritin] 10 MG) PO SCH (09:00)
[2017-12-21] MEDS: SODIUM CHLORIDE 1,000 ML IV SCH (09:20)
[2017-12-21] MEDS: FLEXERIL PO SCH ×3 (09:22→21:14)
[2017-12-21] MEDS: CLARITIN PO SCH (09:23)
[2017-12-21] MEDS: ZESTRIL PO SCH ×2 (09:24→21:13)
[2017-12-21] MEDS: COREG PO SCH ×2 (09:24→17:21)
[2017-12-21] MEDS: ANORO ELLIPTA 62.5-25 MCG INH IH SCH (09:25)
[2017-12-21] MEDS: FLONASE NAS SCH (09:25)
[2017-12-21] MEDS: KLONOPIN PO SCH ×3 (09:41→21:13)
--- NOTE | 2017-12-21 15:08 | CT ---
EXAM: CT abdomen pelvis without contrast HISTORY: Diarrhea with nausea and vomiting for [id number] days with prior appendectomy COMPARISON: CT abdomen pelvis 11/10/2015 and multiple priors TECHNIQUE: Serial axial images of the abdomen pelvis were performed from the lung bases through the inferior pelvis without contrast. These were viewed in multiple planes. FINDINGS: There is mild bibasilar atelectasis. Evaluation is limited due to lack of contrast. The liver is unremarkable. The gallbladder is mildly distended. The right adrenal gland demonstrates a 1.2 cm nodule with Hounsfield units suggestive of an adenoma. The left adrenal gland is normal. The kidneys demonstrate no hydronephrosis or hydrour eter. There is a hyperdense exophytic nodule in the inferior pole of the left kidney measuring 0.7 c m in diameter. The spleen is unremarkable. The pancreas is unremarkable. The stomach is distended. Small bowel in the abdomen pelvis is unremarkable. The the colon demonstrates diverticulosis without diverticulitis. Urinary bladder is distended. There has been a prior hysterectomy. There is no free air, free fluid or lymphadenopathy. There is moderate atherosclerotic disease. The osseous structu res demonstrate pars defects at L5 with 1.3 cm of anterolisthesis. IMPRESSION: 1. No acute intra-abdominal or pelvic process to account for patient's symptoms. 2. Diverticulosis without diverticulitis. 3. Right adrenal adenoma is unchanged. 4. Unchanged hyperdense nodule extending off the left kidney is unchanged likely representing a hemo rrhagic cyst. 5. Degenerative disease of the spine with pars defects at L5 and 1.3 cm of anterolisthesis.
[2017-12-21] MEDS: AMPHETAMINE PO SCH ×2 (15:11→21:17)
[2017-12-21] MEDS: [UNRECOGNIZED DRUG - OTHER] PO SCH ×2 (15:11→21:17)
[2017-12-21] MEDS: DEXTROAMPHETAMINE PO SCH ×2 (15:11→21:17)
--- NOTE | 2017-12-21 15:12 | PN ---
DATE OF SERVICE: 12/21/17 SUBJECTIVE: Still short of breath some, coughing. No fever or chills. Had one episode of he diarrhea. Complaining of the pain and hurting all over the body. REVIEW OF SYSTEMS: CONSTITUTIONAL: No fever, no chills. HEENT: Normal. ENDOCRINE: No weight gain, no weight loss. CVS: No angina symptoms. No CHF symptoms. No palpitations. No atypical chest pain for CAD. No shortness of breath. No PND, no orthopnea. RESPIRATORY: Cough, no hemoptysis. GI: No nausea, no vomiting. No abdominal pain. : No hematuria. No polyuria. MUSCULOSKELETAL: No joint swelling. PSYCHIATRIC: Not anxious. No depression. No suicidal thoughts. No homicidal thoughts. SKIN: Intact. No rash. PHYSICAL EXAMINATION: V/S: Blood pressure 114/72, respiratory rate 20, heart rate 83, temperature 97.6 with saturation 94%. HEENT: Normocephalic, atraumatic. Mucosa dry. Pallor positive. No icterus. NECK: Supple. No JVD, no carotid bruit. No lymphadenopathy. LUNGS: Clear to auscultation. No rales or rhonchi. HEART: S1, S2 normal. No S3. No murmur, gallop or regurgitation. ABDOMEN: Soft, nontender. Bowel sounds active. No rigidity. No rebound or guarding. No CVA tenderness. EXTREMITIES: No cyanosis, clubbing or pedal edema. MUSCULOSKELETAL: No joint swelling. NEUROLOGIC: Awake, alert, oriented times three. No focal deficit. LYMPHATIC: No lymph nodes palpable. SKIN: Intact. LABS: WBC 12.24, hgb 13.8, hct 42.2, plt count 299, sodium 142, potassium 3.7, chloride 104, bicarb 25, BUN 42, creatinine 3.16, glucose 145. ASSESSMENT: 1. COPD exacerbation secondary to the bronchitis 2. Acute renal failure 3. Dehydration 4. Gastroenteritis 5. CHF 6. Dyslipidemia 7. COPD PLAN: 1. CBC and CMP today 2. IV fluids 3. Flexeril Q 8 hours 4. DUO NEBS 5. CT of abdomen and pelvis 6. Solu-Medrol 60 Q 8 hours 7. Daily I&O TIME SPENT: More than 35 minutes MTDD
--- NOTE | 2017-12-21 15:44 | HP ---
DATE OF SERVICE: 12/20/17 CHIEF COMPLAINT: Shortness of breath and chest pain HISTORY OF PRESENT ILLNESS: This is a 57 year old female came with the left epigastric chest pain 20-30 minutes ago. Feels like someone is sitting on the chest, hyperventilating. Tingling and numbness in the hands, was also having coughing and congestion for one week. The patient was seen in the office on the December 13 for the cough and congestion and shortness of breath and was given some antibiotics and steroids. The patient says that it was not getting better. Also the patient not been drinking enough water and still continued to smoke. The patient came to the emergency room as the shortness of breath and chest pain was getting worse also noted that the patient did complain that she vomited 2-3 times the day before and the diarrhea real bad yesterday one time and did get better today. No fever or chills when she came to the emergency room. The patient was seen by the ER physician. Saturation was 94%, WBC was 12,000. ABG done showed the pH 7.468, pCO2 35.8, pO2 75. BUN was 42 and creatinine was 3.16. The previous BUN and creatinine was normal 17 and 0.8. At that time the patient was admitted to the hospital for COPD exacerbation and bronchitis, acute on chronic heart failure and acute renal failure from dehydration. REVIEW OF SYSTEMS: CONSTITUTIONAL: No fever, no chills. HEENT: Normal. ENDOCRINE: No weight gain; no weight loss. CVS: Chest pain. No PND, no orthopnea. Shortness of breath. No PND, no orthopnea. RESPIRATORY: Cough, Congestion. No hemoptysis. GI: Nausea, Vomiting. No abdominal pain. No melena. Diarrhea. : No hematuria. No polyuria. MUSCULOSKELETAL: No joint swelling. PSYCHIATRIC: Not anxious. No depression. No suicidal thoughts. No homicidal thoughts. SKIN: Intact, no open lesions. PAST MEDICAL HISTORY: Coronary artery disease Hypertension CHF Headaches COPD GERD History of ovarian cancer Chronic pain Anxiety Bipolar disorder PAST SURGICAL HISTORY: Tubal ligation Dilation and Curettage PERSONAL HISTORY: The patient is and lives with the . The patient patient is a smoker. No alcohol or illicit drug use. FAMILY HISTORY: CHF MEDICATIONS: Trazodone Adderall Clonazepam Prednisone Inderal Claritin Nasonex Lasix Coreg Lisinopril ALLERGIES: Aspirin Codeine Penicillin PHYSICAL EXAMINATION: V/S: Blood pressure 105/70, respiratory rate 24, heart rate 93, temperature 98.6 with saturation 94.%. HEENT: Atraumatic, normocephalic. No scleral icterus. Mucosa dry. NECK: Supple. No JVD, no bruit. No lymphadenopathy. No thyromegaly. HEART: S1, S2 normal. No murmur. No cyanosis or clubbing. No ascites. LUNGS: Decreased and basilar crackles. Mild expiratory wheeze. Clear to auscultation. No rales or rhonchi. ABDOMEN: Soft,Discomfort all over. Bowel sounds are active. No CVA tenderness. No rigidity or guarding. EXTREMITIES: No pedal edema. No cyanosis or clubbing MUSCULOSKELETAL: Normal joints, no swelling. NEUROLOGIC: The patient is alert and oriented. SKIN: Intact; no open lesions. LYMPHATIC: No lymph nodes palpable. LABS: Sodium 144, potassium 3.7, chloride 104, bicarb 25, BUN 42, creatinine 3.15, glucose 145, WBC 12.24, Hgb 13.8, hct 32.2, plt count 290. ASSESSMENT: 1. COPD Exacerbation secondary to the bronchitis 2. Acute renal failure 3. Dehydration 4. Diarrhea 5. Hypertension 6. CAD 7. CHF 8. Dyslipidemia PLAN: 1. Admit the patient to the regular floor 2. CBC and CMP today and daily 3. Cardiac enzymes and Troponin 4. IV fluids 5. Zofran 6. Breathing treatments Will follow the patient in daily rounds. TIME SPENT: MORE THAN 70 minutes MTDD
[2017-12-21] MEDS: DEMEROL 50 MG/ML VIAL IVP PRN (18:40)
[2017-12-21] MEDS: DESYREL PO SCH (21:13)
[2017-12-22] MEDS: DUONEB NEB SCH ×4 (04:30→22:04)
[2017-12-22] MEDS: LASIX TAB PO SCH (05:46)
[2017-12-22] MEDS: SOLU-MEDROL 125 MG IVP SCH ×3 (05:47→22:35)
[2017-12-22] MEDS: CLARITIN PO SCH (08:57)
[2017-12-22] MEDS: FLEXERIL PO SCH ×3 (08:57→20:24)
[2017-12-22] MEDS: FLONASE NAS SCH (08:57)
[2017-12-22] MEDS: ANORO ELLIPTA 62.5-25 MCG INH IH SCH (08:57)
[2017-12-22] MEDS: AMPHETAMINE PO SCH ×2 (08:58→22:19)
[2017-12-22] MEDS: [UNRECOGNIZED DRUG - OTHER] PO SCH ×2 (08:58→22:19)
[2017-12-22] MEDS: DEXTROAMPHETAMINE PO SCH ×2 (08:58→22:19)
[2017-12-22] MEDS: KLONOPIN PO SCH ×3 (08:58→20:24)
[2017-12-22] MEDS: ZESTRIL PO SCH ×2 (08:58→20:26)
[2017-12-22] MEDS: COREG PO SCH ×2 (08:58→17:31)
[2017-12-22] MEDS: SODIUM CHLORIDE 1,000 ML IV SCH (11:20)
[2017-12-22] MEDS: DEMEROL 50 MG/ML VIAL IVP PRN ×2 (13:04→21:36)
[2017-12-22] MEDS: DESYREL PO SCH (20:24)
[2017-12-23] MEDS: DUONEB NEB SCH ×4 (04:50→22:42)
[2017-12-23] MEDS: SOLU-MEDROL 125 MG IVP SCH ×2 (04:50→12:59)
[2017-12-23] MEDS: LASIX TAB PO SCH (06:06)
[2017-12-23] MEDS: DEMEROL 50 MG/ML VIAL IVP PRN (08:29)
[2017-12-23] MEDS: FLONASE NAS SCH (08:30)
[2017-12-23] MEDS: KLONOPIN PO SCH ×3 (08:30→21:36)
[2017-12-23] MEDS: FLEXERIL PO SCH ×3 (08:30→21:35)
[2017-12-23] MEDS: ANORO ELLIPTA 62.5-25 MCG INH IH SCH (08:30)
[2017-12-23] MEDS: ZESTRIL PO SCH ×2 (08:30→21:36)
[2017-12-23] MEDS: CLARITIN PO SCH (08:31)
[2017-12-23] MEDS: COREG PO SCH ×2 (08:31→17:24)
[2017-12-23] MEDS: AMPHETAMINE PO SCH ×2 (10:00→21:38)
[2017-12-23] MEDS: DEXTROAMPHETAMINE PO SCH ×2 (10:00→21:38)
[2017-12-23] MEDS: [UNRECOGNIZED DRUG - OTHER] PO SCH ×2 (10:00→21:38)
[2017-12-23] MEDS: SODIUM CHLORIDE 1,000 ML IV SCH ×2 (10:53)
[2017-12-23] MEDS: PREDNISONE PO SCH (17:24)
[2017-12-23] MEDS: DESYREL PO SCH (21:36)
[2017-12-24] MEDS: DUONEB NEB SCH ×3 (05:00→20:15)
[2017-12-24] MEDS: LASIX TAB PO SCH (05:34)
[2017-12-24] MEDS ORDERED: CEPACOL SORE THROAT LOZENGE MUCOUSMEMB PRN (08:37)
[2017-12-24] MEDS: FLEXERIL PO SCH ×3 (08:57→20:55)
[2017-12-24] MEDS: COREG PO SCH ×2 (08:57→16:32)
[2017-12-24] MEDS: CLARITIN PO SCH (08:57)
[2017-12-24] MEDS: KLONOPIN PO SCH ×3 (08:57→20:53)
[2017-12-24] MEDS: ZESTRIL PO SCH ×2 (08:58→20:54)
[2017-12-24] MEDS: FLONASE NAS SCH (08:58)
[2017-12-24] MEDS: ANORO ELLIPTA 62.5-25 MCG INH IH SCH (08:58)
[2017-12-24] MEDS: PREDNISONE PO SCH ×2 (08:58→16:31)
[2017-12-24] MEDS: SODIUM CHLORIDE 1,000 ML IV SCH (09:18)
[2017-12-24] MEDS: [UNRECOGNIZED DRUG - OTHER] PO SCH ×2 (11:12→22:54)
[2017-12-24] MEDS: DEXTROAMPHETAMINE PO SCH ×2 (11:12→22:54)
[2017-12-24] MEDS: AMPHETAMINE PO SCH ×2 (11:12→22:54)
--- NOTE | 2017-12-24 15:22 | PN ---
DATE OF SERVICE: 12/22/17 SUBJECTIVE: The patient is complaining about coughing and congestion and shortness of breath is slightly improved from yesterday. BUN and Creatinine is gradually getting better. REVIEW OF SYSTEMS: CONSTITUTIONAL: No fever, no chills. HEENT: Normal. ENDOCRINE: No weight gain, no weight loss. CVS: No angina symptoms. No CHF symptoms. No palpitations. No atypical chest pain for CAD. No shortness of breath. No PND, no orthopnea. RESPIRATORY: No cough, no hemoptysis. GI: No nausea, no vomiting. No abdominal pain. : No hematuria. No polyuria. MUSCULOSKELETAL: No joint swelling. PSYCHIATRIC: Not anxious. No depression. No suicidal thoughts. No homicidal thoughts. SKIN: Intact. No rash. PHYSICAL EXAMINATION: V/S: Blood pressure 130/60, respiratory 24, heart rate 90, temperature 97.6 and saturation 90%. HEENT: Normocephalic, atraumatic. Mucosa dry. NECK: Supple. No JVD, no carotid bruit. No lymphadenopathy. LUNGS: Decreased and basilar crackles. Clear to auscultation. No rales or rhonchi. HEART: S1, S2 normal. No S3. No murmur, gallop or regurgitation. ABDOMEN: Soft, nontender. Bowel sounds active. No rigidity. No rebound or guarding. No CVA tenderness. EXTREMITIES: No cyanosis, clubbing or pedal edema. MUSCULOSKELETAL: No joint swelling. NEUROLOGIC: Awake, alert, oriented times three. No focal deficit. LYMPHATIC: No lymph nodes palpable. SKIN: Intact. LABS: Sodium 139, potassium 4.4, chloride 103, bicarb 26, BUN 32, creatinine 1.2, glucose 79, WBC 13.41, hgb 12.2, hct 37.8, plt count 232 ASSESSMENT: 1. Acute renal failure 2. Chest pain 3. COPD exacerbation secondary to the bronchitis 4. Hypertension 5. CHF 6. Headache 7. COPD 8. Osteoarthritis 9. DJD spine 10.Bipolar disorder PLAN: 1. Coreg 2. DUO NEBS 3. Lisinopril 4. Demerol 5. Solu-Medrol 6. Daily I&O's TIME SPENT: More than 35 minutes MTDD
[2017-12-24] MEDS ORDERED: ATIVAN IVP STA (20:18)
[2017-12-24] MEDS ORDERED: BENADRYL PO STA (20:21)
[2017-12-24] MEDS: DESYREL PO SCH (20:52)
[2017-12-24] MEDS: DEMEROL 50 MG/ML VIAL IVP PRN (21:00)
[2017-12-25] MEDS: DUONEB NEB SCH ×4 (05:45→20:30)
[2017-12-25] MEDS: LASIX TAB PO SCH (06:24)
[2017-12-25] MEDS: AMPHETAMINE PO SCH ×2 (09:00→20:14)
[2017-12-25] MEDS: DEXTROAMPHETAMINE PO SCH ×2 (09:00→20:14)
[2017-12-25] MEDS: [UNRECOGNIZED DRUG - OTHER] PO SCH ×2 (09:00→20:14)
[2017-12-25] MEDS: ANORO ELLIPTA 62.5-25 MCG INH IH SCH (09:23)
[2017-12-25] MEDS: JANUVIA PO SCH (09:23)
[2017-12-25] MEDS: FLONASE NAS SCH (09:23)
[2017-12-25] MEDS: KLONOPIN PO SCH ×3 (09:23→20:13)
[2017-12-25] MEDS: PREDNISONE PO SCH ×2 (09:24→16:48)
[2017-12-25] MEDS: ZESTRIL PO SCH ×2 (09:24→20:13)
[2017-12-25] MEDS: FLEXERIL PO SCH ×3 (09:24→20:13)
[2017-12-25] MEDS: ELIQUIS PO SCH ×2 (09:25→20:13)
[2017-12-25] MEDS: COREG PO SCH ×2 (09:25→16:48)
[2017-12-25] MEDS: CLARITIN PO SCH (09:25)
[2017-12-25] MEDS: SODIUM CHLORIDE 1,000 ML IV SCH (09:42)
--- NOTE | 2017-12-25 09:46 | PN ---
DATE OF SERVICE: 12/23/17 SUBJECTIVE: The patient's is in the room and says that she does not feel good, hurting all over the body and hurting more in the head. She has some coughing and shortness of breath with minimal exertion. REVIEW OF SYSTEMS: CONSTITUTIONAL: No fever, no chills. HEENT: Normal. ENDOCRINE: No weight gain, no weight loss. CVS: No angina symptoms. No CHF symptoms. No palpitations. No atypical chest pain for CAD. No shortness of breath. No PND, no orthopnea. RESPIRATORY: Cough getting some phlegm, no hemoptysis. GI: No nausea, no vomiting. No abdominal pain. : No hematuria. No polyuria. MUSCULOSKELETAL: No joint swelling. PSYCHIATRIC: Not anxious. No depression. No suicidal thoughts. No homicidal thoughts. SKIN: Intact. No rash. PHYSICAL EXAMINATION: V/S: Blood pressure 122/59, respiratory rate 18, heart rate 97, temperature 97.4 and saturation 93%. HEENT: Normocephalic, atraumatic. Mucosa dry. NECK: Supple. No JVD, no carotid bruit. No lymphadenopathy. LUNGS:Decreased and basilar crackles. Clear to auscultation. No rales or rhonchi. HEART: S1, S2 normal. No S3. No murmur, gallop or regurgitation. ABDOMEN: Soft, nontender. Bowel sounds active. No rigidity. No rebound or guarding. No CVA tenderness. EXTREMITIES: No cyanosis, clubbing or pedal edema. MUSCULOSKELETAL: No joint swelling. NEUROLOGIC: Awake, alert, oriented times three. No focal deficit. LYMPHATIC: No lymph nodes palpable. SKIN: Intact. LABS: WBC 13.57, hgb 11.8, hct 36.7, plt count 225, sodium 140, potassium 4.0, chloride 103, bicarb 28, BUN 25, creatinine 0.98, glucose 396, A1c 6.8. ASSESSMENT: 1. COPD exacerbation secondary to bronchitis 2. Acute renal failure which is improved 3. CAD 4. CHF 5. New onset diabetes 6. Depression 7. Anxiety PLAN: 1. Change the Solu-Medrol to Prednisone 2. Continue 1gram of Rocephin 3. IV fluids 4. Demerol for the pain PRN only 5. Out of bed to chair 6. Diabetes discussed with the patient in detail. TIME SPENT: More than 35 minutes MTDD
[2017-12-25] MEDS: DESYREL PO SCH (20:12)
[2017-12-26] MEDS: DUONEB NEB SCH ×4 (04:50→21:18)
[2017-12-26] MEDS: LASIX TAB PO SCH (06:06)
[2017-12-26] MEDS: FLONASE NAS SCH (09:03)
[2017-12-26] MEDS: FLEXERIL PO SCH ×3 (09:03→20:05)
[2017-12-26] MEDS: PREDNISONE PO SCH ×2 (09:04→16:54)
[2017-12-26] MEDS: ELIQUIS PO SCH ×2 (09:04→20:05)
[2017-12-26] MEDS: ANORO ELLIPTA 62.5-25 MCG INH IH SCH (09:04)
[2017-12-26] MEDS: JANUVIA PO SCH (09:04)
[2017-12-26] MEDS: CLARITIN PO SCH (09:04)
[2017-12-26] MEDS: ZESTRIL PO SCH ×2 (09:04→20:05)
[2017-12-26] MEDS: COREG PO SCH ×2 (09:04→16:54)
[2017-12-26] MEDS: KLONOPIN PO SCH ×3 (09:04→20:06)
[2017-12-26] MEDS: DEXTROAMPHETAMINE PO SCH ×2 (09:05→20:06)
[2017-12-26] MEDS: AMPHETAMINE PO SCH ×2 (09:05→20:06)
[2017-12-26] MEDS: [UNRECOGNIZED DRUG - OTHER] PO SCH ×2 (09:05→20:06)
[2017-12-26] MEDS: SODIUM CHLORIDE 1,000 ML IV SCH (10:06)
--- NOTE | 2017-12-26 13:00 | PN ---
DATE OF SERVICE: 12/25/17 SUBJECTIVE: The patient had an episode where patient was having the panic attack and heart rate went up to 160's and respiratory rate went up to 32. Diego, the nurse given a dose of Ativan and Lasix. EKG was done which was showing the atrial fibrillation which is a new onset. The patient when asked said that she did have a history of atrial fibrillation and never been addressed properly in the past. Otherwise as of today morning the patient is comfortably lying in the bed and not in any distress. Remembers having an echocardiogram done by Dr. Melendez. REVIEW OF SYSTEMS: CONSTITUTIONAL: No fever, no chills. HEENT: Normal. ENDOCRINE: No weight gain, no weight loss. CVS: No angina symptoms. No CHF symptoms. Still having some palpitations. No atypical chest pain for CAD. No shortness of breath. No PND, no orthopnea. RESPIRATORY: No cough, no hemoptysis. GI: No nausea, no vomiting. No abdominal pain. : No hematuria. No polyuria. MUSCULOSKELETAL: No joint swelling. PSYCHIATRIC: Not anxious. No depression. No suicidal thoughts. No homicidal thoughts. SKIN: Intact. No rash. PHYSICAL EXAMINATION: V/S: Blood pressure 149/92, respiratory rate 16, heart rate 71, temperature 97.5 with saturation 95%. HEENT: Normocephalic, atraumatic. Mucosa dry. Pallor positive. No icterus. NECK: Supple. No JVD, no carotid bruit. No lymphadenopathy. LUNGS: Decreased and basilar crackles. Clear to auscultation. No rales or rhonchi. HEART: S1, S2 normal. No S3. Irregular. No murmur, gallop or regurgitation. ABDOMEN: Soft, nontender. Bowel sounds active. No rigidity. No rebound or guarding. No CVA tenderness. EXTREMITIES: No cyanosis, clubbing or pedal edema. MUSCULOSKELETAL: No joint swelling. NEUROLOGIC: Awake, alert, oriented times three. No focal deficit. LYMPHATIC: No lymph nodes palpable. SKIN: Intact. LABS: WBC 11.96, hgb 11.9, hct 36.8, plt count 214, sodium 140, potassium 4.1, chloride 103, bicarb 30, BUN 28, creatinine 0.88, glucose 291. ASSESSMENT: 1. New onset atrial fibrillation 2. New onset diabetes mellitus with A1c 6.8. 3. COPD exacerbation secondary to the bronchitis 4. CAD 5. CHF 6. Depression 7. Anxiety 8. Osteoarthritis 9. DJD spine 10.Headaches. PLAN: 1. Will get TSH and Lipid profile 2. Start the patient on the Eliquis 5mg twice a day; explained about the risk of intracranial bleed and GI bleed as anticoagulation 3. Coreg 12.5mg twice a day is controlling the heart rate, still in atrial fibrillation 4. Will decrease the Solu-Medrol to 60mg Q 8 hours 5. Out of bed to chair with the help Will follow the patient in daily rounds. TIME SPENT: More than 35 minutes CHANDAN
--- NOTE | 2017-12-26 13:13 | PN ---
DATE OF SERVICE: 12/24/17 SUBJECTIVE: The patient was admitted with the acute on chronic renal failure, COPD exacerbation and bronchitis. Still having some cough, congestion otherwise no fever chills. REVIEW OF SYSTEMS: CONSTITUTIONAL: No fever, no chills. HEENT: Normal. ENDOCRINE: No weight gain, no weight loss. CVS: No angina symptoms. No CHF symptoms. No palpitations. No atypical chest pain for CAD. No shortness of breath. No PND, no orthopnea. RESPIRATORY: Cough, no hemoptysis. GI: No nausea, no vomiting. No abdominal pain. : No hematuria. No polyuria. MUSCULOSKELETAL: No joint swelling. PSYCHIATRIC: Not anxious. No depression. No suicidal thoughts. No homicidal thoughts. SKIN: Intact. No rash. PHYSICAL EXAMINATION: V/S: Blood pressure 149/94, respiratory rate 36, heart rate 88, temperature 97.4 and saturation 94%. HEENT: Normocephalic, atraumatic. Mucosa dry. Pallor positive. No icterus. NECK: Supple. No JVD, no carotid bruit. No lymphadenopathy. LUNGS: Decreased and basilar crackles. Clear to auscultation. No rales or rhonchi. HEART: S1, S2 normal. No S3. No murmur, gallop or regurgitation. ABDOMEN: Soft, nontender. Bowel sounds active. No rigidity. No rebound or guarding. No CVA tenderness. EXTREMITIES: No cyanosis, clubbing or pedal edema. MUSCULOSKELETAL: No joint swelling. NEUROLOGIC: Awake, alert, oriented times three. No focal deficit. LYMPHATIC: No lymph nodes palpable. SKIN: Intact. LABS: WBC 13.57, hgb 11.8, hct 36.7, plt count 225, sodium 140, potassium 4.1, chloride 103, bicarb 27, BUN 27, creatinine 0.91, glucose 331. ASSESSMENT: 1. COPD exacerbation secondary to the bronchitis 2. New onset anemia 3. CAD 4. CHF 5. Hypertension 6. Depression 7. Anxiety PLAN: 1. Continue Rocephin, Solu-Medrol and breathing treatments 2. Daily I&O's TIME SPENT: More than 35 minutes MTDD
[2017-12-26] MEDS: DESYREL PO SCH (20:06)
[2017-12-27] MEDS: DUONEB NEB SCH ×2 (05:03→10:17)
[2017-12-27] MEDS: LASIX TAB PO SCH (05:33)
[2017-12-27] MEDS: FLONASE NAS SCH (08:50)
[2017-12-27] MEDS: ANORO ELLIPTA 62.5-25 MCG INH IH SCH (08:51)
[2017-12-27] MEDS: ZESTRIL PO SCH (08:51)
[2017-12-27] MEDS: COREG PO SCH (08:52)
[2017-12-27] MEDS: CLARITIN PO SCH (08:52)
[2017-12-27] MEDS: FLEXERIL PO SCH (08:53)
[2017-12-27] MEDS: KLONOPIN PO SCH (08:53)
[2017-12-27] MEDS: PREDNISONE PO SCH (08:53)
[2017-12-27] MEDS: ELIQUIS PO SCH (08:56)
[2017-12-27] MEDS ORDERED: GLUCOPHAGE PO SCH (09:00)
--- NOTE | 2017-12-27 09:13 | PN ---
DATE OF SERVICE: 12/26/17 SUBJECTIVE: The patient still having some coughing and congestion and says her palpitations are better. Her free T4 and T3 are normal. Subclinical hypothyroidism is seen. Now the rhythm is now back in regular. REVIEW OF SYSTEMS: CONSTITUTIONAL: No fever, no chills. HEENT: Normal. ENDOCRINE: No weight gain, no weight loss. CVS: No angina symptoms. No CHF symptoms. No palpitations. No atypical chest pain for CAD. No shortness of breath. No PND, no orthopnea. RESPIRATORY: No cough, no hemoptysis. GI: No nausea, no vomiting. No abdominal pain. : No hematuria. No polyuria. MUSCULOSKELETAL: No joint swelling. PSYCHIATRIC: Not anxious. No depression. No suicidal thoughts. No homicidal thoughts. SKIN: Intact. No rash. PHYSICAL EXAMINATION: V/S: Blood pressure 140/83, respiratory rate 16, heart rate 83, temperature 97.8 , saturation 95%. HEENT: Normocephalic, atraumatic. Mucosa dry. Pallor positive. No icterus. NECK: Supple. No JVD, no carotid bruit. No lymphadenopathy. LUNGS: Decreased and clear to auscultation. No rales or rhonchi. HEART: S1, S2 normal. Regular heart rate. No S3. No murmur, gallop or regurgitation. ABDOMEN: Soft, nontender. Bowel sounds active. No rigidity. No rebound or guarding. No CVA tenderness. EXTREMITIES: No cyanosis, clubbing or pedal edema. MUSCULOSKELETAL: No joint swelling. NEUROLOGIC: Awake, alert, oriented times three. No focal deficit. LYMPHATIC: No lymph nodes palpable. SKIN: Intact. LABS: Sodium 140, potassium 4.1, chloride 98, bicarb 33, BUN 24, creatinine 0.85, glucose 329, WBC 11.90, hgb 12.1, hct 37.8, plt count 226. ASSESSMENT: 1. New onset atrial fibrillation 2. New onset diabetes 3. Acute renal failure 4. COPD Exacerbation secondary to the bronchitis 5. CAD 6. CHF 7. Hypertension 8. Dyslipidemia 9. Osteoarthritis PLAN: 1. Continue the Eliquis 2. Coreg 3. DUO NEBS 4. Demerol 5. Out of bed to chair activity as tolerated. TIME SPENT: More than 35 minutes MTDD
[2017-12-27 10:11] VITALS: BP 88/58; TEMP 98
[2017-12-27] MEDS: DEXTROAMPHETAMINE PO SCH (10:16)
[2017-12-27] MEDS: AMPHETAMINE PO SCH (10:16)
[2017-12-27] MEDS: [UNRECOGNIZED DRUG - OTHER] PO SCH (10:16)
--- NOTE | 2018-01-15 19:50 | DS ---
DATE OF SERVICE: 12/27/17 FINAL DIAGNOSIS: 1. COPD EXACERBATION SECONDARY TO BRONCHITIS 2. ACUTE RENAL FAILURE 3. CHRONIC CHF, SYSTOLIC 4. DIABETES MELLITUS, NEW ONSET 5. CAD 6. HYPERTENSION 7. COPD 8. GERD 9. DEPRESSION/ANXIETY 10. OSTEOARTHRITIS 11. FIBROMYALGIA 12. TOBACCO USE 12. DIVERTICULOSIS 13. HYSTERECTOMY DISCHARGE INSTRUCTIONS: Discharge the patient home. Followup appointment with Dr. Ulloa on 01/03/18 at 10 a.m. MEDICATIONS AT DISCHARGE: Coreg Lasix Lisinopril Claritin Nasonex Prednisone 10 mg p.o. b.i.d. Clonazepam Dextroamphetamine Trazodone Neomycin Anoro NEW PRESCRIPTIONS: Eliquis Meteformin Prednisone DIET INSTRUCTIONS: Cardiac and Healthy ACTIVITY: As much as tolerated DISEASE SPECIFIC EDUCATION: Acute renal failure Dehydration [id number] medication discussed, verbalized understanding Lifestyle modifications and weight loss discussed HOSPITAL COURSE: This is a 57-year-old female with multiple medical problems, heart failure, CHF and COPD. She has been treated as an outpatient for upper respiratory infection , bronchitis. As the patient was getting worse and feeling bad, went to the emergency room and was seen by the ER physician, Dr. Carver. BUN and creatinine were elevated 42 and 3.16. White count 12.24. Chest x-ray done showing no acute cardiopulmonary process. ABGs done: pH 7.468, pc02 35.8, p02 75. Admitted to the hospital and started on IV fluids, breathing treatment, cough medication and pain medication also given. With the given treatment, the patient was gradually feeling better. Demerol was given for the pain. Duonebs and Prednisone were given. Hospital course was uneventful. BUN and creatinine gradually improved today, 27 and 0.9. A1C 6.8, which is new onset diabetes. Lifestyle modifications and weight loss discussed. Will be starting the medication Januvia 15 mg p.o. daily. Diet and weight loss discussed, verbalized understanding. TIME SPENT: MORE THAN 65 MINUTES MTDD
== END 2017-12-27 12:25 | disposition home or self-care (01) | DRG 191 ==
LOC: ED 13:43 → MEDSURG A 17:45
PROVIDERS: ADMIT Emergency Medicine; ATTEND Emergency Medicine
DX: J44.9 Chronic obstructive pulmonary disease, unspecified (principal); N17.9 Acute kidney failure, unspecified; I13.0 Hypertensive heart and chronic kidney disease with heart failure and stage 1 through stage 4 chronic kidney disease, or unspecified chronic kidney disease; I50.22 Chronic systolic (congestive) heart failure; R10.13 Epigastric pain; R11.0 Nausea; R06.02 Shortness of breath; E78.5 Hyperlipidemia, unspecified; I25.10 Atherosclerotic heart disease of native coronary artery without angina pectoris; Z72.0 Tobacco use; N18.9 Chronic kidney disease, unspecified; G43.909 Migraine, unspecified, not intractable, without status migrainosus; F41.8 Other specified anxiety disorders; F31.9 Bipolar disorder, unspecified; M19.90 Unspecified osteoarthritis, unspecified site; E11.22 Type 2 diabetes mellitus with diabetic chronic kidney disease; M79.7 Fibromyalgia; K57.90 Diverticulosis of intestine, part unspecified, without perforation or abscess without bleeding; Z79.01 Long term (current) use of anticoagulants
CPT/HCPCS: 36415; 80048; 80053; 80061; 80306; 81001; 82550; 82553; 82803; 83036; 83605; 83880; 84439; 84443; 84481; 84484; 85025; 87040; 87086; 87502; 93005; 93010; 94640; 94761; 96374; 97802; 99223; 99232; 99233; 99239; 99284

== ENCOUNTER 2018-02-25 15:18 | Outpatient (CLI) | END 2018-02-25 15:40 | disposition short-term general hospital (02) | LOC: AMBL 15:18 | PROVIDERS: ATTEND Internal Medicine | DX: R07.9 Chest pain, unspecified (principal); R06.02 Shortness of breath; F41.9 Anxiety disorder, unspecified; R03.0 Elevated blood-pressure reading, without diagnosis of hypertension ==

== ENCOUNTER 2018-03-03 16:47 | Emergency (ER) ==
[2018-03-03 16:52] VITALS: BP 192/117; TEMP 98; BMI 43.3
[2018-03-03] MEDS ORDERED: NITROSTAT SL STA (16:57)
[2018-03-03] MEDS ORDERED: MORPHINE 2 MG/ML SYRINGE IVP STA (16:57)
--- NOTE | 2018-03-03 17:03 | ED.PDOC ---
General ED Provider: Dr. PATRIZIA GEE-ER Chief Complaint: Chest Pain Stated Complaint: my chest hurts Time Seen by Physician: 16:50 Mode of Arrival: Walk-In Information Source: Patient Exam Limitations: No limitations [facility] and T[facility] Documentation Reviewed and Agree: Yes Does patient meet sepsis criteria?: No System Inflammatory Response Syndrome: Not Applicable Sepsis Protocol: For patient's 13 years and over: Temp is 96.8 and below OR 101 and greater Pulse >90 BPM Resp >20/minute Acutely Altered Mental Status Are patient's symptoms suggestive of a new infection, such as: -Pneumonia -Skin, Soft Tissue -Endocarditis -UTI -Bone, Joint Infection -Implantable Device -Acute Abdominal Infection -Wound Infection -Meningitis -Blood Stream Catheter Infection -Unknown Cardiovascular Complaint Exam - Chest Pain Complaint/Exam Onset: Gradual Duration: since this am Symptoms Are: Still present Initial Severity: Mild Current Severity: Moderate Location: Reports: Midsternal Character: Reports: Dull, Aching Aggravating: Reports: None Alleviating: Reports: Spontaneous resolution Associated Signs and Symptoms: Denies: Diaphoresis, Nausea, Vomiting, Fever, Palpitations, Cough, Hemoptysis, Back pain, Abdominal pain, Dizziness, Short of air, Calf pain, Calf swelling AMI/ACS Risk Factors: Reports: Hypertension TAD Risk Factors: Reports: None Prior Care for this Complaint: Yes (at [facility] 2 days ago) Recent Stress Test: No Recent Echo/LV Function: No JVD Present: No Subcutaneous Emphysema Present: No Diminshed Breath Sounds: No Reproducible Chest Wall Pain: No Bilateral Pulses Present: Yes Review of Systems - Review Of Systems Constitutional: Reports: No symptoms Eyes: Reports: No symptoms Ears, Nose, Mouth, Throat: Reports: No symptoms Respiratory: Reports: No symptoms Cardiac: Reports: Chest pain GI: Reports: No symptoms : Reports: No symptoms Musculoskeletal: Reports: No symptoms Skin: Reports: No symptoms Neurological: Reports: No symptoms Endocrine: Reports: No symptoms Hematologic/Lymphatic: Reports: No symptoms All Other Systems: Reviewed and Negative Past Medical History - Past Medical History Previously Healthy: No Endocrine: Reports: Dyslipidemia Cardiovascular: Reports: CAD, Hypertension, CHF Respiratory: Reports: COPD Hematological: Reports: None Gastrointestinal: Reports: None, GERD Genitourinary: Reports: None, CKD Neuro/Psych: Reports: Migraine, Anxiety, Depression, Bipolar Disorder Musculoskeletal: Reports: Arthritis Cancer: Reports: None Last Menstrual Period: none Other Pertinent Past Medical History: fibrologramia - Surgical History General Surgical History: Reports: Hysterectomy, Tubal ligation, Cholecystectomy - Family History Family History: Reports: None - Social History Smoking Status: Current some day smoker, Light tobacco smoker Hx Substance Use: No Alcohol Screening: Occasionally Physical Exam - Physical Exam Appearance: Well-appearing Pain Distress: Moderate Eyes: AYESHA, EOMI, Conjunctiva clear ENT: Ears normal, Nose normal, Oropharynx normal Neck: Supple Respiratory: Airway patent, Breath sounds clear, Breath sounds equal, Respirations nonlabored Cardiovascular: RRR, Pulses normal, No rub, No murmur GI/: Soft, Nontender, No masses, Bowel sounds normal, No Organomegaly Musculoskeletal: Normal strength, ROM intact, No edema, No calf tenderness Skin: Warm, Dry, Normal color Neurological: Sensation intact, Motor intact, Reflexes intact, Cranial nerves intact, Alert, Oriented Psychiatric: Affect appropriate, Mood appropriate, Anxious Interpretation - Radiology Interpretation Radiology Interpretation By: ED Physician Radiology Results: Negative Exam Interpreted: Portable CXR - EKG Interpretation Time of EKG #1: 17:05 Rate: Normal Rhythm: Sinus Ectopy: None [place]: NL ST Segment: Normal Re-Evaluation - Re-Evaluation Time of Re-Evaluation: 17:13 Status: Improved Vital Signs Stable: Yes Pain Level: 1 Appearance: NAD Lungs: Clear Skin: Warm and Dry Neuro: Alert and Oriented X3 CV: RRR Physician Notification - Case Discussed Physician Notified: dr ruiz [facility] ed Time of Notification: 17:14 Critical Care Note - Critical Care Note Total Time (mins): 30 Course - Course Orders, Labs, Meds: Orders Category Date Time Status EKG-(ED ONLY) Stat CARDIO 03/03/18 16:52 Completed [employer] [ED [employer] APPLIED] .ONCE EMERGENCY 03/03/18 16:52 Active IV [ED IV/MEDIPORT/POWERPORT] .ONCE EMERGENCY 03/03/18 16:52 Active AMYLASE Stat LAB 03/03/18 16:52 Ordered CBC W/ AUTO DIFF Stat LAB 03/03/18 16:52 Ordered COMPREHENSIVE METABOLIC PANEL Stat LAB 03/03/18 16:52 Ordered CREATINE KINASE Stat LAB 03/03/18 16:52 Ordered D-DIMER Stat LAB 03/03/18 Ordered LIPASE Stat LAB 03/03/18 16:52 Ordered TROPONIN I Stat LAB 03/03/18 16:52 Ordered 0.9 % Sodium Chloride [Saline Flush] MEDS 03/03/18 16:52 Ordered 1 syr IVF PRN PRN Morphine Sulfate [Morphine 2 mg/ml Syringe] MEDS 03/03/18 16:57 Discontinued 2 mg IVP ONCE STA Nitroglycerin [Nitrostat] MEDS 03/03/18 16:57 Discontinued 0.4 mg SL ONCE STA CXR [CHEST, 1V AP ONLY] Stat RADS 03/03/18 16:58 Taken Medications Generic Name Dose Route Start Last Admin Trade Name Freq PRN Reason Stop Dose Admin Sodium Chloride 1 syr 03/03/18 16:52 03/03/18 17:10 Saline Flush IVF 1 syr PRN PRN Administration To flush IV Discontinued Medications Generic Name Dose Route Start Last Admin Trade Name Freq PRN Reason Stop Dose Admin Morphine Sulfate 2 mg 03/03/18 16:57 03/03/18 17:09 Morphine 2 Mg/Ml Syringe IVP 03/03/18 16:58 2 mg ONCE STA Administration Nitroglycerin 0.4 mg 03/03/18 16:57 03/03/18 17:06 Nitrostat SL 03/03/18 16:58 0.4 mg ONCE STA Administration Vital Signs: Temp Pulse Resp BP Pulse Ox 03/03/18 16:47 98.0 F 94 H 24 192/117 H 96 FEI Risk Score FEI Risk Score: Risk Score Odds of by 30D 0 0.1 (0.1-0.2) 1 0.3 (0.2-0.3) 2 0.4 (0.3-0.5) 3 0.7 (0.6-0.9) 4 1.2 (1.0-1.5) 5 2.2 (1.9-2.6) 6 3.0 (2.5-3.6) 7 4.8 (3.8-6.1) Departure - Departure Time of Disposition: 17:14 Disposition: TSF SHORT-TRM HOSP Discharge Problem: Chest pain Instructions: Chest Pain (ED) Condition: Good Pt referred to PMD for follow-up: Yes IPMP verified?: No Allergies/Adverse Reactions: Allergies aspirin Adverse Reaction (Verified 03/03/18 16:58) codeine Adverse Reaction (Verified 03/03/18 16:58) Penicillins Adverse Reaction (Verified 03/03/18 16:58) Home Medications: Ambulatory Orders Apixaban [Eliquis] 5 mg PO BID #60 tablet 12/27/17 Metformin HCl [Glucophage] 500 mg PO BIDWM #60 tablet 12/27/17 Aripiprazole 10 mg PO DAILY 02/25/18 Trazodone HCl 100 mg PO BEDTIME 02/25/18 Disposition Discussed With: Patient, Family
--- NOTE | 2018-03-04 07:53 | DI ---
EXAM: Single AP view of the chest HISTORY: Chest pain. COMPARISON: Chest x-ray 12/20/2017 and multiple priors including CT chest 11/04/2017 FINDINGS: Cardiomediastinal silhouette is normal. There is no pneumothorax. There is no consolidati on, nodule or mass. The osseous structures are unremarkable. IMPRESSION: No acute cardiopulmonary process.
== END 2018-03-03 17:29 | disposition short-term general hospital (02) ==
LOC: ED 16:47
DX: R07.9 Chest pain, unspecified (principal); I10 Essential (primary) hypertension; I25.10 Atherosclerotic heart disease of native coronary artery without angina pectoris; E78.5 Hyperlipidemia, unspecified; N18.9 Chronic kidney disease, unspecified; K21.9 Gastro-esophageal reflux disease without esophagitis; F17.210 Nicotine dependence, cigarettes, uncomplicated; Z79.899 Other long term (current) drug therapy
CPT/HCPCS: 36415; 80053; 82150; 82550; 83690; 84484; 85025; 85379; 93005; 93010; 96374; 99285

== ENCOUNTER 2018-04-28 09:27 | Emergency (ER) ==
[2018-04-28 09:30] VITALS: BP 145/83; TEMP 100.1; BMI 41.3
[2018-04-28] MEDS ORDERED: DUONEB NEB STA (09:37)
--- NOTE | 2018-04-28 10:05 | CT ---
Exam: CT scan of the maxillofacial area. Date: 04/28/2018. Comparison: None. HISTORY: Cough. Sinus congestion. TECHNIQUE: Helical scan of the maxillofacial area was performed. FINDINGS: Frontal sinuses: Clear. Ethmoid sinuses: Clear. Maxillary sinuses: There is a 0.4 x 0.5 cm polyp along the floor the left maxillary sinus. No fluid is present. Sphenoid sinuses: There is mild mucoperiosteal thickening. Nasal fossa: There is slight septal deviation to the right anteriorly. The middle turbinates have a normal orientation. The ostiomeatal complexes are patent. There is no contact of the nasal septum and turbinate mucosa. No maxillary teeth are observed. No bony destructive changes are seen in the maxillofacial region. The mastoid air cells are clear. The soft tissues of the maxillofacial region appear within normal li mits. Impression: There is a small polyp in the left maxillary sinus with mucoperiosteal thickening in the sphenoid sinuses, but no fluid levels are observed. The findings may represent chronic sinusitis.
--- NOTE | 2018-04-28 10:10 | CT ---
Exam: CT scan of the thorax without contrast. Date: 04/28/2018. Comparison: 11/04/2017. HISTORY: Cough. TECHNIQUE: Helical scan of the thorax was performed without contrast. FINDINGS: The thoracic inlet and axillary regions are normal. No suspicious mediastinal adenopathy is observed. Caliber of the thoracic aorta and cardiac chambers are normal. The spleen and upper li gina have a uniform attenuation although the attenuation of the liver is as low as 24 Hounsfield units . The stomach and left adrenal gland are normal. There is a 2.3 x 1.6 cm right adrenal nodule that measures 6 HU. No acute osseous abnormalities are observed. Evaluation at lung window settings demonstrates granulomatous calcifications. No suspicious pulmonar y nodules, pleural fluid or consolidation is present. Tracheobronchial tree is patent. Impression: No acute intrathoracic findings. Old granulomatous disease. Hepatic steatosis. 2.3 x 1.6 cm lipid rich right adrenal adenoma.
--- NOTE | 2018-04-28 10:25 | CT ---
Exam: CT scan of the abdomen pelvis without contrast. Date: 04/28/2018. Comparison: 12/21/2017. HISTORY: Vomiting. TECHNIQUE: Helical scan of the abdomen pelvis was performed without contrast. FINDINGS: Granulomatous calcifications are present in the lung bases. Minor degenerative changes ar e seen in the thoracic spine and degenerative changes are also present in the lumbar spine. There ar e bilateral pars defects at L5 with 1.2 cm of anterolisthesis of L5 on S1. The bony pelvis is intact , with degenerative changes in the hips bilaterally. The spleen and liver have a uniform attenuation although the attenuation of the liver is as low as 20 Hounsfield units. The gallbladder, stomach, pancreas and left adrenal gland are normal. There is a 2.3 x 1.6 cm right adrenal nodule that measures 6 HU. The kidneys have a normal morphology and ther e is left perinephric stranding. No calculi or hydronephrosis is seen. There is a 1.2 x 0.9 cm exop hytic nodule projecting off the lower pole left kidney that measures 57 HU. No retroperitoneal adeno maggie is present. Aorta has peripheral calcification and does not exceed 3 cm. The small bowel is n ormal. There are colonic diverticula but no inflammatory changes. The pelvic sidewall and bladder a re normal. Hysterectomy has been performed. There is no free pelvic fluid. The rectum and inguinal regions are normal. Impression: No acute findings in the abdomen or pelvis. Diverticulosis without diverticulitis. Hepatic steatosis. There is redemonstration of a is 0.9 x 1.2 cm exophytic nodule projecting off the lower pole left kid aurea. This could represent a hyperdense renal cyst although a solid mass is not excluded. Ultrasound would be recommended for more definitive evaluation. Hysterectomy. Old granulomatous disease. Bilateral pars defects at L5 with 1.2 cm of anterolisthesis of L5 on S1. If further evaluation of th is finding is needed then MRI could be performed.
[2018-04-28] MEDS ORDERED: NORCO 7.5-325 PO STA (11:05)
--- NOTE | 2018-04-28 11:09 | ED.PDOC ---
General ED Provider: Dr. PATRIZIA GEE-ER Chief Complaint: Cough Stated Complaint: kiersten got sinus drainage and im running a fever--its making me cough Time Seen by Physician: 09:30 Mode of Arrival: Walk-In Information Source: Patient, Family Exam Limitations: No limitations Primary Care Provider: PANTERA MULLER Nursing and Triage Documentation Reviewed and Agree: Yes Does patient meet sepsis criteria?: No System Inflammatory Response Syndrome: Not Applicable Sepsis Protocol: For patient's 13 years and over: Temp is 96.8 and below OR 101 and greater Pulse >90 BPM Resp >20/minute Acutely Altered Mental Status Are patient's symptoms suggestive of a new infection, such as: -Pneumonia -Skin, Soft Tissue -Endocarditis -UTI -Bone, Joint Infection -Implantable Device -Acute Abdominal Infection -Wound Infection -Meningitis -Blood Stream Catheter Infection -Unknown Respiratory Complaint Exam - Respiratory Complaint/Exam Onset/Duration: 3 days Symptoms Are: Still present Timing: Intermittent Initial Severity: Mild Current Severity: Mild Location: Nose, Chest Character: Reports: Productive cough Aggravating: Reports: URI Alleviating: Reports: None Associated Signs and Symptoms: Reports: URI, Nasal congestion, Sinus discomfort History of Healthcare-Acquired Pneumonia: No Cardiac Risk Factors: Reports: None Pseudomonas Risk Factors: Reports: None Home Oxygen Use: No Recent Stress Test: No Recent Echo/LV Function: No Current Antibiotic Use: No Current Asthma Medication Use: No Dysphagia Present: Yes JVD Present: No Accessory Muscle Use: No Retractions: Not Present Diminished Breath Sounds: No Sinus Tenderness: Maxillary Grunting Respirations: No Kussmaul Respirations: No Differential Diagnoses: Pneumonia, Bronchitis Review of Systems - Review Of Systems Constitutional: Reports: No symptoms, Fever Eyes: Reports: No symptoms Ears, Nose, Mouth, Throat: Reports: Nose discharge Respiratory: Reports: Cough Cardiac: Reports: No symptoms GI: Reports: No symptoms : Reports: No symptoms Musculoskeletal: Reports: No symptoms Skin: Reports: No symptoms Neurological: Reports: No symptoms Endocrine: Reports: No symptoms Hematologic/Lymphatic: Reports: No symptoms All Other Systems: Reviewed and Negative Past Medical History - Past Medical History Previously Healthy: No Endocrine: Reports: Dyslipidemia Cardiovascular: Reports: CAD, Hypertension, CHF Respiratory: Reports: COPD Hematological: Reports: None Gastrointestinal: Reports: None, GERD Genitourinary: Reports: None, CKD Neuro/Psych: Reports: Migraine, Anxiety, Depression, Bipolar Disorder Musculoskeletal: Reports: Arthritis Cancer: Reports: None Last Menstrual Period: HYSTERECTOMY Other Pertinent Past Medical History: fibrologramia - Surgical History General Surgical History: Reports: Hysterectomy, Tubal ligation, Cholecystectomy - Family History Family History: Reports: None - Social History Smoking Status: Current some day smoker, Light tobacco smoker Hx Substance Use: No Alcohol Screening: Occasionally - Immunizations Tetanus Shot up to Date: No Physical Exam - Physical Exam Appearance: Well-appearing, No pain distress, Well-nourished Eyes: AYESHA, EOMI, Conjunctiva clear ENT: Ears normal, Nose normal, Oropharynx normal Neck: Supple Respiratory: Rhonchi Cardiovascular: RRR, Pulses normal, No rub, No murmur GI/: Soft, Nontender, No masses, Bowel sounds normal, No Organomegaly Musculoskeletal: Normal strength, ROM intact, No edema, No calf tenderness Skin: Warm, Dry, Normal color Neurological: Sensation intact Psychiatric: Affect appropriate, Mood appropriate Interpretation - Radiology Interpretation Radiology Interpretation By: Radiologist Radiology Results: Positive Exam Interpreted: CT Scan Re-Evaluation - Re-Evaluation Time of Re-Evaluation: 11:09 Status: Improved Vital Signs Stable: Yes Pain Level: 1 Appearance: NAD Lungs: Clear Skin: Warm and Dry Neuro: Alert and Oriented X3 CV: RRR Critical Care Note - Critical Care Note Total Time (mins): 0 Course - Course Hematology/Chemistry: 04/28/18 10:10 04/28/18 10:10 Orders, Labs, Meds: Lab Review 04/28/18 04/28/18 04/28/18 09:41 10:10 10:10 WBC 13.29 H RBC 4.62 Hgb 12.9 Hct 38.8 MCV 84.0 MCH 27.9 MCHC 33.2 RDW Coeff of Sheldon 13.4 Plt Count 206 Immature Gran % (Auto) 0.5 Neut % (Auto) 83.2 Lymph % (Auto) 8.1 L Boyd % (Auto) 7.3 Eos % (Auto) 0.5 Baso % (Auto) 0.4 Immature Gran # (Auto) 0.1 Neut # (Auto) 11.1 H Lymph # (Auto) 1.1 Boyd # (Auto) 1.0 Eos # (Auto) 0.1 Baso # (Auto) 0.1 D-Dimer (Manual) Sodium 140.7 Potassium 3.78 Chloride 102.9 Carbon Dioxide 31.5 H Anion Gap 10.08 BUN 12.2 Creatinine 0.89 Estimated GFR (MDRD) 65.00 BUN/Creatinine Ratio 13.70 Glucose 168.5 H Lactic Acid Calcium 8.34 L Total Bilirubin 0.58 AST 16.8 ALT 20.0 Alkaline Phosphatase 83.5 Total Protein 7.01 Albumin 3.68 Globulin 3.33 Albumin/Globulin Ratio 1.10 Procalcitonin Influ A Molecular Assay Negative by naat Influ B Molecular Assay Negative by naat 04/28/18 04/28/18 04/28/18 10:10 10:10 10:10 WBC RBC Hgb Hct MCV MCH MCHC RDW Coeff of Sheldon Plt Count Immature Gran % (Auto) Neut % (Auto) Lymph % (Auto) Boyd % (Auto) Eos % (Auto) Baso % (Auto) Immature Gran # (Auto) Neut # (Auto) Lymph # (Auto) Boyd # (Auto) Eos # (Auto) Baso # (Auto) D-Dimer (Manual) 546.10 Sodium Potassium Chloride Carbon Dioxide Anion Gap BUN Creatinine Estimated GFR (MDRD) BUN/Creatinine Ratio Glucose Lactic Acid 0.87 Calcium Total Bilirubin AST ALT Alkaline Phosphatase Total Protein Albumin Globulin Albumin/Globulin Ratio Procalcitonin 7.37 Influ A Molecular Assay Influ B Molecular Assay Orders Category Date Time Status NEBULIZER TREATMENT Stat CARDIO 04/28/18 09:38 Completed BLOOD CULTURE (ED ONLY) Stat LAB 04/28/18 10:10 Received CBC W/ AUTO DIFF Stat LAB 04/28/18 10:10 Completed COMPREHENSIVE METABOLIC PANEL Stat LAB 04/28/18 10:10 Completed D-DIMER Stat LAB 04/28/18 10:10 Completed FLU A/B MOLECULAR Stat LAB 04/28/18 09:41 Completed LACTIC ACID Stat LAB 04/28/18 10:10 Completed MOLECULAR GROUP A STREP Stat LAB 04/28/18 09:41 Completed PROCALCITONIN Stat LAB 04/28/18 10:10 Completed Hydrocodone Bit/Acetaminophen [Pierce 7.5-325] MEDS 04/28/18 11:05 Discontinued 1 tab PO ONCE STA Ipratropium/Albuterol Neb [Duoneb] MEDS 04/28/18 09:37 Discontinued [address] vial NEB ONCE STA [address] ABDOMEN/PELVIS WO CONTRAST Stat RADS 04/28/18 09:[address] CHEST W/O CONTRAST Stat RADS 04/28/18 09:[address] SINUSES W/O CONTRAST Stat RADS 04/28/18 09:36 Completed Medications Discontinued Medications Generic Name Dose Route Start Last Admin Trade Name Bharti PRN Reason Stop Dose Admin Hydrocodone Bitart/Acetaminophen 1 tab 04/28/18 11:05 Pierce 7.5-325 PO 04/28/18 11:06 ONCE STA Albuterol/Ipratropium 1 vial 04/28/18 09:37 04/28/18 09:56 Duoneb NEB 04/28/18 09:38 1 vial ONCE STA Administration Vital Signs: Temp Pulse Resp BP Pulse Ox 04/28/18 09:27 100.1 F H 93 H 20 145/83 H 95 Departure - Departure Time of Disposition: 11:10 Disposition: HOME SELF-CARE Discharge Problem: Renal mass Rhinitis Qualifiers: Rhinitis type: unspecified Qualified Code(s): J31.0 - Chronic rhinitis Instructions: Upper Respiratory Infection (ED) Condition: Good Pt referred to PMD for follow-up: Yes IPMP verified?: No Additional Instructions: biaxin 500mg bid x 10 days---flonase nasal spray one puff each nostril bid -- astelin nasal spray 2 puffs each nostril bid--tessalon perlles 200mg tid prn cough 30---talk to dr conde about the place on your kidney Allergies/Adverse Reactions: Allergies aspirin Adverse Reaction (Verified 04/28/18 09:31) codeine Adverse Reaction (Verified 04/28/18 09:31) Penicillins Adverse Reaction (Verified 04/28/18 09:31) Home Medications: Ambulatory Orders Aripiprazole 10 mg PO DAILY 02/25/18 Trazodone HCl 100 mg PO BEDTIME 02/25/18 Disposition Discussed With: Patient, Family
== END 2018-04-28 11:30 | disposition home or self-care (01) ==
LOC: ED 09:27
DX: J31.0 Chronic rhinitis (principal); N28.89 Other specified disorders of kidney and ureter; N18.9 Chronic kidney disease, unspecified; F17.210 Nicotine dependence, cigarettes, uncomplicated; R05 Cough; R50.9 Fever, unspecified; I25.10 Atherosclerotic heart disease of native coronary artery without angina pectoris; E78.5 Hyperlipidemia, unspecified; I10 Essential (primary) hypertension; Z79.899 Other long term (current) drug therapy
CPT/HCPCS: 36415; 80053; 83605; 84145; 85025; 85379; 87040; 87502; 87651; 94640; 99283

== ENCOUNTER 2018-05-10 07:53 | Outpatient (CLI) ==
--- NOTE | 2018-05-10 10:23 | US ---
EXAM: Ultrasound retroperitoneal complete. HISTORY: Left renal mass. COMPARISON: CT 04/28/2018, 05/21/2015. TECHNIQUE: Multiple juares scale and color Doppler images. FINDINGS: Right kidney measures 9.1 x 5 x 3.9 cm. The left kidney measures 9.4 x 4.6 x 3.3 cm and c ontains a 1 cm circumscribed hypoechoic, probably anechoic, mass off the lower pole cortex, grossly s table since the 05/21/[address] No echogenic shadowing stones are seen. Cortical echogenic ity in both kidneys is normal. There is no hydronephrosis. Urinary bladder is unremarkable. IMPRESSION: Probable small left renal cyst, too small to characterize by ultrasound, but stable since at least .
== END 2018-05-10 07:54 | disposition home or self-care (01) ==
LOC: RAD 07:53
PROVIDERS: ATTEND Family Medicine
DX: N28.89 Other specified disorders of kidney and ureter (principal)

== ENCOUNTER 2018-05-20 18:01 | Outpatient (CLI) | END 2018-05-20 18:02 | disposition home or self-care (01) | LOC: LAB 18:01 | PROVIDERS: ATTEND Family Medicine | DX: D72.829 Elevated white blood cell count, unspecified (principal); E11.9 Type 2 diabetes mellitus without complications; R79.89 Other specified abnormal findings of blood chemistry | CPT/HCPCS: 36415; 80053; 82043; 83036; 84443; 85025 ==

== ENCOUNTER 2019-02-10 22:03 | Emergency (ER) ==
[2019-02-10 22:26] VITALS: TEMP 99.9; BMI 45.2
[2019-02-10] MEDS ORDERED: ATIVAN IM STA (22:26)
[2019-02-10 23:10] VITALS: BP 155/99
--- NOTE | 2019-02-10 23:16 | ED.PDOC ---
General ED Provider: Dr. PATRIZIA AQUINO MD Chief Complaint: Hypertension Stated Complaint: hypertension Time Seen by Physician: 22:34 Mode of Arrival: Wheelchair Information Source: Patient Exam Limitations: No limitations Primary Care Provider: PANTERA MULLER Nursing and Triage Documentation Reviewed and Agree: Yes Does patient meet sepsis criteria?: No If yes, has appropriate treatment been initiated?: Yes System Inflammatory Response Syndrome: Not Applicable Sepsis Protocol: For patient's 13 years and over: Temp is 96.8 and below OR 101 and greater Pulse >90 BPM Resp >20/minute Acutely Altered Mental Status Are patient's symptoms suggestive of a new infection, such as: -Pneumonia -Skin, Soft Tissue -Endocarditis -UTI -Bone, Joint Infection -Implantable Device -Acute Abdominal Infection -Wound Infection -Meningitis -Blood Stream Catheter Infection -Unknown Review of Systems - Review Of Systems Constitutional: Reports: No symptoms Eyes: Reports: No symptoms Ears, Nose, Mouth, Throat: Reports: No symptoms Respiratory: Reports: No symptoms Cardiac: Reports: Palpitations GI: Reports: No symptoms : Reports: No symptoms Musculoskeletal: Reports: No symptoms Skin: Reports: No symptoms Neurological: Reports: No symptoms Endocrine: Reports: No symptoms Hematologic/Lymphatic: Reports: No symptoms All Other Systems: Reviewed and Negative Past Medical History - Past Medical History Previously Healthy: No Endocrine: Reports: Dyslipidemia Cardiovascular: Reports: CAD, Hypertension, CHF, A-Fib (intermitent ) Respiratory: Reports: COPD Hematological: Reports: None Gastrointestinal: Reports: None, GERD Genitourinary: Reports: None, CKD Neuro/Psych: Reports: Migraine, Anxiety, Depression, Bipolar Disorder Musculoskeletal: Reports: Arthritis Cancer: Reports: None Last Menstrual Period: 2017 Other Pertinent Past Medical History: fibrologramia - Surgical History General Surgical History: Reports: Hysterectomy, Tubal ligation, Cholecystectomy - Family History Family History: Reports: None - Social History Smoking Status: Current some day smoker, Light tobacco smoker Hx Substance Use: No Alcohol Screening: None - Immunizations Tetanus Shot up to Date: Yes Physical Exam - Physical Exam Appearance: Obese Ill-appearing: None Pain Distress: None Eyes: AYESHA, EOMI, Conjunctiva clear ENT: Ears normal, Nose normal, Oropharynx normal Respiratory: Airway patent, Breath sounds clear, Breath sounds equal, Respirations nonlabored Cardiovascular: RRR, Pulses normal, No rub, No murmur GI/: Soft, Nontender, No masses, Bowel sounds normal, No Organomegaly Musculoskeletal: Normal strength, ROM intact, No edema, No calf tenderness Skin: Warm, Dry, Normal color Neurological: Sensation intact, Motor intact, Reflexes intact, Cranial nerves intact, Alert, Oriented Psychiatric: Affect appropriate, Mood appropriate Critical Care Note - Critical Care Note Total Time (mins): 0 Course - Course Orders, Labs, Meds: Orders Category Date Time Status Lorazepam [Ativan] MEDS 02/10/19 22:26 Discontinued 2 mg IM ONCE STA Medications Discontinued Medications Generic Name Dose Route Start Last Admin Trade Name Bharti PRN Reason Stop Dose Admin Lorazepam 2 mg 02/10/19 22:26 02/10/19 22:43 Ativan IM 02/10/19 22:27 2 mg ONCE STA Administration Vital Signs: Temp Pulse Resp BP Pulse Ox 02/10/19 22:50 114 H 22 155/99 H 94 L 02/10/19 22:22 116 H 24 167/114 H 94 L 02/10/19 22:15 99.9 F H 124 H 24 199/108 H 90 L FEI Risk Score FEI Risk Score: Risk Score Odds of by 30D 0 0.1 (0.1-0.2) 1 0.3 (0.2-0.3) 2 0.4 (0.3-0.5) 3 0.7 (0.6-0.9) 4 1.2 (1.0-1.5) 5 2.2 (1.9-2.6) 6 3.0 (2.5-3.6) 7 4.8 (3.8-6.1) Departure - Departure Time of Disposition: 23:18 Disposition: HOME SELF-CARE Discharge Problem: Hypertension Qualifiers: Hypertension type: essential hypertension Qualified Code(s): I10 - Essential ( primary) hypertension Instructions: Chronic Hypertension (ED) Condition: Good Pt referred to PMD for follow-up: Yes IPMP verified?: No Allergies/Adverse Reactions: Allergies aspirin Adverse Reaction (Verified 07/04/18 21:44) codeine Adverse Reaction (Verified 07/04/18 21:44) Penicillins Adverse Reaction (Verified 07/04/18 21:44) Home Medications: Ambulatory Orders Trazodone HCl 150 mg PO BEDTIME 05/01/18 Metformin HCl 500 mg PO BIDWM #60 tablet 07/05/18 Carvedilol [Coreg] 6.25 mg PO BIDWM 30 Days #60 tab 07/22/18 Dextroamphetamine/Amphetamine [Adderall 30 Mg Tablet] 30 mg PO DAILY 08/13/18 Diclofenac Sodium 75 mg PO BID 02/10/19 Gabapentin [Neurontin] 300 mg PO TID 02/10/19 Topiramate [Topamax] 100 mg PO DAILY 02/10/19 Transfer Form Completed: No Disposition Discussed With: Patient, Family
== END 2019-02-10 23:30 | disposition home or self-care (01) ==
LOC: ED 22:03
DX: I10 Essential (primary) hypertension (principal); R00.2 Palpitations; E78.5 Hyperlipidemia, unspecified; I25.10 Atherosclerotic heart disease of native coronary artery without angina pectoris; N18.9 Chronic kidney disease, unspecified; F17.210 Nicotine dependence, cigarettes, uncomplicated; Z79.899 Other long term (current) drug therapy
CPT/HCPCS: 96372; 99283

== ENCOUNTER 2024-03-04 06:29 | Observation (INO) ==
[2024-03-04] MEDS ORDERED: SODIUM CHLORIDE 1,000 ML IV ONE ×2 (06:47→07:58)
--- NOTE | 2024-03-04 06:51 | ED.PDOC ---
General <HIGINIO CASTELLANOS MD - Last Filed: 03/04/24 07:01> ED Provider: Dr. HIGINIO CASTELLANOS MD Chief Complaint: Fall Stated Complaint: 63-year-old female history of COPD not on home O2, CKD, hypertension, diabetes presented to the emergency department with chief complaint of fall. Patient states she was standing up and HER KNEES BECAME WOBBLY AND SHE FELL DOWN. SHE FELL DOWN HURTING HER RIGHT ANKLE. SHE IS HAVING RIGHT ANKLE AND FOOT PAIN. SHE ALSO HIT HER CHIN BUT DENIES HITTING HER HEAD. DENIES LOSS OF CONSCIOUSNESS DENIES BLOOD THINNERS. Patient denies ever having had chest pain, shortness of breath, recent nausea or vomiting or illness. Has not had medication changes. Patient does not check her blood sugars but did have banana this morning. No headache no blurry vision no neck pain no back pain. Took no meds before she came in. Ankle pain is moderate. Has not ambulated since then. 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 Time Seen by Provider: 03/04/24 06:37 Information Source: Patient Nursing and Triage Documentation Reviewed and Agree: Yes What is Opioid Naive?: *Opioid Naive implies the patient is not already taking opioids or not chronically receiving opioids on a daily basis. *PRN dosing is not "usually" associated with tolerance. *Patients are at higher risk of over-sedation and aspiration. What is Opioid Tolerant?: *Opioid Tolerance implies less than the expected response to an opioid. *Acquired tolerance is defined by the patient taking 60mg of oral morphine daily (or equianalgesic dose of another opioid) for 1 week or more. *Often associated with chronic pain. *May take more than usual dose to achieve desired pain control. <EMILY MOREIRA MD - Last Filed: 03/04/24 08:07> Mode of Arrival: Walk-In Exam Limitations: No limitations Does Patient Take Opioids?: No Is Patient Opioid Naive?: No Is Patient Opioid Tolerant?: No Review of Systems <HIGINIO CASTELLANOS MD - Last Filed: 03/04/24 07:01> Review Of Systems Constitutional: Denies Chills or Fever Ears, Nose, Mouth, Throat: Denies Mouth pain Respiratory: Denies Orthopnea or Shortness of Breath Cardiac: Denies Chest pain, Irregular heart rate or Lightheadedness GI: Denies Abdominal pain PFSH <HIGINIO CASTELLANOS MD - Last Filed: 03/04/24 07:01> Medical History Contusion T14.8XXA - Other injury of unspecified body region, initial encounter (ICD- 10) Malignant neoplasm of uterus C55 - Malignant neoplasm of uterus, part unspecified (ICD-10) Spondylolisthesis M43.10 - Spondylolisthesis, site unspecified (ICD-10) Family History Mother CHF (congestive heart failure) Social History Smoking and tobacco status: Current every day smoker Tobacco type: e-cigarettes Alcohol intake: never Counseling given: No Counseling provided: none Substance use type: marijuana Counseling given: No Counseling provided: none Lynne/temple: NONE Special lynne needs: No Agree to transfusion: Yes Adopted: Yes Caregiver/support person: No Household members: spouse Housing: condominium Marital status: M Lives independently: No Number of children: 2 Number of grandchildren: 3 Highest education level completed: 7th grade Financial difficulty paying for basics: hard Current occupational status: disabled Previous occupational history: facotry work in the past; has been on disability for 15 years Pets and animals: Yes (cat and a dog) Leisure activites: art History of recent travel: No Do you think of yourself as: straight/heterosexual Current gender identity: female Seatbelt use: always Drives intoxicated or rides with intoxicated wheelchair driver: No Water heater temperature set < 120 degrees: Yes Working smoke detector in home: Yes Fire extinguisher in home: Yes Carbon monoxide detector in home: No Firearms in home: Yes Firearms unloaded and locked: Yes Surgical History History of tubal ligation Z98.51 - Tubal ligation status (ICD-10) Stomach Tumor Status post hysterectomy Z90.710 - Acquired absence of both cervix and uterus (ICD-10) Female Reproductive History Menstrual Hx Hysterectomy: Yes Hx Tubal Ligation: No Physical Exam <HIGINIO CASTELLANOS MD - Last Filed: 03/04/24 07:01> Physical Exam Appearance: Reports Well-appearing, No pain distress and Well-nourished Ill-appearing: None Pain Distress: None Eyes: Reports AYESHA, EOMI and Conjunctiva clear ENT: Reports Ears normal, Nose normal and Oropharynx normal Neck: Supple Respiratory: Reports Airway patent, Breath sounds clear, Breath sounds equal and Respirations nonlabored Cardiovascular: Reports RRR, Pulses normal, No rub and No murmur GI/: Reports Soft, Nontender, No masses, Bowel sounds normal and No Organomegaly Musculoskeletal: Reports Normal strength, ROM intact, No edema and Other (Pos ankle swleling on r side w/ ttp over lat malleolus, ttp over dorsum of foot as well, nv intact) Skin: Reports Warm, Dry and Normal color Neurological: Reports Sensation intact, Motor intact, Reflexes intact, Cranial nerves intact, Alert and Oriented Psychiatric: Reports Affect appropriate and Mood appropriate Interpretation <EMILY MOREIRA MD - Last Filed: 03/04/24 08:07> EKG Interpretation EKG Interpretation By: ED Physician Time of EKG #1: 07:25 Rate: Normal Rhythm: Sinus Ectopy: None [place]: Left ST Segment: Other (No acute ST elevations noted.) EKG Comparison: Other (Patient has some inversions in inferior leads compared to previous EKG in 2020. ) Radiology Interpretation Radiology Interpretation By: ED Physician Radiology Results: Negative Exam Interpreted: CXR Course <HIGINIO CASTELLANOS MD - Last Filed: 03/04/24 07:01> Course 03/04/24 06:57 Orders, Labs, Meds: Lab Review 03/04/24 06:57 WBC 8.99 RBC 5.24 Hgb 14.2 Hct 44.3 MCV 84.5 MCH 27.1 MCHC 32.1 RDW Coeff of [place] 13.6 Plt Count 214 Immature Gran % (Auto) 0.8 Neut % (Auto) 62.3 Lymph % (Auto) 26.8 [place] % (Auto) 7.3 Eos % (Auto) 1.9 Baso % (Auto) 0.9 Neut # (Auto) 5.6 Lymph # (Auto) 2.4 [place] # (Auto) 0.7 Eos # (Auto) 0.2 Baso # (Auto) 0.1 Immature Gran # (Auto) 0.1 Orders Category Date Time Status EKG-(ED ONLY) Stat CARDIO 03/04/24 06:47 Ordered ED ACCUCHECK ASSESSMENT .ONCE EMERGENCY 03/04/24 06:47 Active IV [ED IV/MEDIPORT/POWERPORT] .ONCE EMERGENCY 03/04/24 06:47 Active CBC W/ AUTO DIFF Stat LAB 03/04/24 06:57 Completed CMP [COMPREHENSIVE METABOLIC PANEL] Stat LAB 03/04/24 06:57 Received URINALYSIS C & S IF INDICATED Stat LAB 03/04/24 06:45 Received Acetaminophen [Tylenol] Meds 03/04/24 06:47 Discontinued 650 mg PO ONCE ONE Sodium Chloride 0.9% [Sodium Chloride] 500 ml Meds 03/04/24 06:51 Active IV BOLUS ANKLE, RIGHT MIN 3 VIEWS Stat RADS 03/04/24 06:47 Ordered CXR [CHEST, 2 VIEWS PA & LAT] Stat RADS 03/04/24 06:47 Ordered FOOT, RIGHT 3 VIEWS Stat RADS 03/04/24 06:47 Ordered Medications Generic Name Dose Route Start Last Admin Trade Name Freq PRN Reason Stop Dose Admin Sodium Chloride 500 mls @ 500 mls/hr 03/04/24 06:51 Sodium Chloride IV 03/04/24 07:50 BOLUS ONE Discontinued Medications Generic Name Dose Route Start Last Admin Trade Name Freq PRN Reason Stop Dose Admin Acetaminophen 650 mg 03/04/24 06:47 Acetaminophen 325 Mg Tablet PO 03/04/24 06:48 ONCE ONE Vital Signs: Temp Pulse Resp BP Pulse Ox 03/04/24 06:30 97.2 F L 81 18 91/60 96 <EMILY MOREIRA MD - Last Filed: 03/04/24 08:07> Course Orders, Labs, Meds: Lab Review 03/04/24 06:57 WBC 8.99 RBC 5.24 Hgb 14.2 Hct 44.3 MCV 84.5 MCH 27.1 MCHC 32.1 RDW Coeff of [place] 13.6 Plt Count 214 Immature Gran % (Auto) 0.8 Neut % (Auto) 62.3 Lymph % (Auto) 26.8 [place] % (Auto) 7.3 Eos % (Auto) 1.9 Baso % (Auto) 0.9 Neut # (Auto) 5.6 Lymph # (Auto) 2.4 [place] # (Auto) 0.7 Eos # (Auto) 0.2 Baso # (Auto) 0.1 Immature Gran # (Auto) 0.1 Orders Category Date Time Status EKG-(ED ONLY) Stat CARDIO 03/04/24 06:47 Ordered ED ACCUCHECK ASSESSMENT .ONCE EMERGENCY 03/04/24 06:47 Active IV [ED IV/MEDIPORT/POWERPORT] .ONCE EMERGENCY 03/04/24 06:47 Active CBC W/ AUTO DIFF Stat LAB 03/04/24 06:57 Completed CMP [COMPREHENSIVE METABOLIC PANEL] Stat LAB 03/04/24 06:57 Received URINALYSIS C & S IF INDICATED Stat LAB 03/04/24 06:45 Received Acetaminophen [Tylenol] Meds 03/04/24 06:47 Discontinued 650 mg PO ONCE ONE Sodium Chloride 0.9% [Sodium Chloride] 500 ml Meds 03/04/24 06:51 Active IV BOLUS ANKLE, RIGHT MIN 3 VIEWS Stat RADS 03/04/24 06:47 Ordered CXR [CHEST, 2 VIEWS PA & LAT] Stat RADS 03/04/24 06:47 Ordered FOOT, RIGHT 3 VIEWS Stat RADS 03/04/24 06:47 Ordered Medications Generic Name Dose Route Start Last Admin Trade Name Freq PRN Reason Stop Dose Admin Sodium Chloride 500 mls @ 500 mls/hr 03/04/24 06:51 Sodium Chloride IV 03/04/24 07:50 BOLUS ONE Discontinued Medications Generic Name Dose Route Start Last Admin Trade Name Freq PRN Reason Stop Dose Admin Acetaminophen 650 mg 03/04/24 06:47 Acetaminophen 325 Mg Tablet PO 03/04/24 06:48 ONCE ONE Vital Signs: Temp Pulse Resp BP Pulse Ox 03/04/24 06:30 97.2 F L 81 18 91/60 96 Discharge Plan Discharge Patient Disposition: PLACED OBSERVATION Discharge Problem: ZOE (acute kidney injury), Calcaneal spur, right foot, Dehydration, Hyponatremia Ankle pain Qualifiers: Chronicity: acute Laterality: right Qualified Code(s): M25.571 - Pain in right ankle and joints of right foot Fall Qualifiers: Encounter type: initial encounter Qualified Code(s): W19.XXXA - Unspecified fall, initial encounter UTI (urinary tract infection) Qualifiers: Urinary tract infection type: acute cystitis Hematuria presence: without hematuria Qualified Code(s): N30.00 - Acute cystitis without hematuria Ankle sprain Qualifiers: Encounter type: initial encounter Involved ligament of ankle: unspecified ligament Laterality: right Qualified Code(s): S93.401A - Sprain of unspecified ligament of right ankle, initial encounter Hyperglycemia due to type 2 diabetes mellitus Qualifiers: Diabetes mellitus [facility] insulin use: unspecified 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 Patient states she felt wobbly in her knees and then they just gave out. She is having generalized weakness. She otherwise feels herself right now. She hit her chin and has a small abrasion to the area however there are no other signs of trauma, she has no headache did not hit her head no loss of consciousness. Do not feel patient needs a CT of the head or C-spine she has no midline CTL or S tenderness no back pain. She never had any chest pain or shortness of breath this does not sound consistent with a cardiac event however we will keep on the monitor in the meantime. Her blood pressure was initially reported as low however the cuff was adjusted and is now reading in the 100 systolic. She does seem mildly dehydrated on exam will give a small fluid bolus that she does have a history of CHF. She states that she has not been drinking fluids well. Will check fingerstick as she has a history of diabetes. The only signs of significant trauma that she has on physical exam is some swelling to her right ankle and dorsum of right foot. Will keep on monitor, will get EKG to screen for any potential arrhythmia. Will get urinalysis with generalized weakness that was described. Will get x-ray of ankle and foot. Reevaluate. If everything is normal likely be able to discharge home. <EMILY MOREIRA MD - Last Filed: 03/04/24 08:07> Physician Progress Note: 63-year-old female comorbidities mentioned above presenting to the emergency department with fall. Patient states she felt wobbly in her knees and then they just gave out. She is having generalized weakness. She otherwise feels herself right now. She hit her chin and has a small abrasion to the area however there are no other signs of trauma, she has no headache did not hit her head no loss of consciousness. Do not feel patient needs a CT of the head or C-spine she has no midline CTL or S tenderness no back pain. She never had any chest pain or shortness of breath this does not sound consistent with a cardiac event however we will keep on the monitor in the meantime. Her blood pressure was initially reported as low however the cuff was adjusted and is now reading in the 100 systolic. She does seem mildly dehydrated on exam will give a small fluid bolus that she does have a history of CHF. She states that she has not been drinking fluids well. Will check fingerstick as she has a history of diabetes. The only signs of significant trauma that she has on physical exam is some swelling to her right ankle and dorsum of right foot. Will keep on monitor, will get EKG to screen for any potential arrhythmia. Will get urinalysis with generalized weakness that was described. Will get x-ray of ankle and foot. Reevaluate. If everything is normal likely be able to discharge home. I, Emily Moreria MD, took over this patient's care at 0700 on 03/04/2024. At the time patient was pending a RIGHT ankle x-ray of the ankle and baseline labs. Patient's disposition at time of handoff from Dr. Castellanos was discharged. -CBC is unremarkable. Patient's vital signs are stable. -EKG shows normal sinus rhythm with a rate of 89 bpm. There are some inverted T waves compared to her EKG and 2020 in the inferior leads. No acute ST elevations noted. Will have patient follow-up with her primary care doctor for potential outpatient stress test. Patient does not complain of any shortness of breath or chest pain. -Chest x-ray shows no acute cardiopulmonary disease. -X-ray of the right foot shows no acute fracture or dislocation. -X-ray of the right ankle shows no acute fractures or dislocation. Small old avulsion fractures noted. Bone spur on the back of her calcaneus noted. -Patient has ZOE we will continue IV fluids. Patient also has a UTI. Will give IV Rocephin 1 g. -Spoke to Chadd Kim NP who is a hospitalist at [facility] who has agreed to admit the patient for ZOE. I discussed the patient's current symptoms and workup and she agrees to admit this patient for observation. -Will give the patient another liter of normal saline for rehydration. Will also give the patient p.o. Kathleen 10/325 mg for pain in RIGHT ankle secondary to fall. -Patient was also found to have of glucose at 450 mg/dL. Will give her subcu regular insulin 6 units. -Per hospital policy patient has to have a COVID test. Once the COVID test is taken patient will be transferred to the floor at [facility] for observation.
[2024-03-04 07:02] LABS: BASOPHILS # (AUTO) 0.1 K/uL (0-0.2); BASOPHILS % (AUTO) 0.9 % (0.0-3.0); EOSINOPHILS # (AUTO) 0.2 K/ul (0.0-0.7); EOSINOPHILS % (AUTO) 1.9 % (0.0-7.0); HEMATOCRIT 44.3 % (37.0-47.0); HEMOGLOBIN 14.2 g/dl (12.0-16.0); IMMATURE GRANULOCYTE # (AUTO) 0.1 (0.0-1.0); IMMATURE GRANULOCYTE % (AUTO) 0.8 % (0.0-5.0); LYMPHOCYTES # (AUTO) 2.4 K/uL (0.60-3.4); LYMPHOCYTES % (AUTO) 26.8 (10.0-50.0); MEAN CORPUSCULAR HEMOGLOBIN 27.1 pg (27.0-31.0); MEAN CORPUSCULAR HGB CONC 32.1 (31.8-35.4); MEAN CORPUSCULAR VOLUME 84.5 fl (81.0-99.0); MONOCYTES # (AUTO) 0.7 K/uL (0.4-2.0); MONOCYTES % (AUTO) 7.3 (0-10); NEUTROPHILS # (AUTO) 5.6 K/ul (2.0-6.9); NEUTROPHILS % (AUTO) 62.3 % (42.2-75.2); PLATELET COUNT 214 10^3/uL (140-440); RDW COEFFICIENT OF VARIATION 13.6 % (11.6-14.8); RED BLOOD COUNT 5.24 10^6/ul (4.20-5.40); WHITE BLOOD COUNT 8.99 K/ul (4.6-10.2)
[2024-03-04 07:17] LABS: ALANINE AMINOTRANSFERASE 19.9 U/L (0-35); ALBUMIN 4.1 g/dL (3.5-5.0); ALKALINE PHOSPHATASE 84.9 U/L (53-141); ASPARTATE AMINO TRANSFERASE 26.3 U/L (14-36); BILIRUBIN,TOTAL 0.54 mg/dL (0.2-1.3); BLOOD UREA NITROGEN 37.2 mg/dL (7-17); CALCIUM 9.27 mg/dL (8.4-10.2); CARBON DIOXIDE 25.5 mmol/L (22-30.0); CHLORIDE 94.3 mmol/L (98-107); CREATININE 1.68 mg/dL (0.60-1.30); GLUCOSE 451.8 mg/dL (74-106); POTASSIUM 4.11 mmol/L (3.5-5.1); SODIUM 132.6 mmol/L (134.5-145); TOTAL PROTEIN 7.09 g/dL (6.3-8.2)
[2024-03-04 07:20] LABS: BILIRUBIN,URINE Negative (NEGATIVE); CLARITY,URINE Cloudy (CLEAR); COLOR,URINE Yellow (YELLOW); GLUCOSE, URINE (UA) 2+ (NEGATIVE); KETONES,URINE Negative (NEGATIVE); LEUKOCYTE ESTERASE ,URINE Negative (NEGATIVE); NITRITE,URINE Positive (NEGATIVE); PH,URINE 5.5 (5-9); PROTEIN,URINE Negative (NEGATIVE); URINE, BLOOD Trace-intact (NEGATIVE); UROBILINOGEN,URINE 0.2 (0.2)
[2024-03-04 07:21] LABS: BACTERIA,URINE 4+ (NOT PRESENT); MUCUS,URINE TRACE (NOT PRESENT)
[2024-03-04] MEDS: TYLENOL PO ONE (07:28)
[2024-03-04] MEDS: SODIUM CHLORIDE 500 ML IV ONE (07:29)
--- NOTE | 2024-03-04 07:35 | DI ---
EXAM: CHEST RADIOGRAPH TECHNIQUE: Two views. Frontal and lateral. HISTORY: Near-syncope. COMPARISON: 12/21/2019 FINDINGS: Calcified granuloma of the left base. Mild bibasilar atelectasis. No pulmonary infiltrate is identified. No pleural effusion or pneumothorax is seen. Heart size is normal. No acute displaced rib fractures are identified. Reverse arthroplasty of the right glenohumeral joint, only partially imaged, again noted. Moderate t o severe degenerative changes with a 2.0 cm ossified body of the left glenohumeral joint, progressed. IMPRESSION: 1. No acute findings in the chest.
--- NOTE | 2024-03-04 07:43 | DI ---
EXAM: RIGHT FOOT RADIOGRAPH TECHNIQUE: 3 views. Frontal, lateral, and oblique. HISTORY: Right foot pain status post trauma. COMPARISON: 01/06/2016 FINDINGS: Mild soft tissue swelling. No visible foreign body. Small calcaneal spurs at the Achilles tendon an d plantar fascia insertions, about the same. Mild degenerative changes of the midfoot, stable. No v isible fractures or dislocations. IMPRESSION: 1. Soft tissue swelling without visible fracture.
--- NOTE | 2024-03-04 07:47 | DI ---
EXAM: RADIOGRAPHS, RIGHT ANKLE HISTORY: Right ankle pain. COMPARISON: None. TECHNIQUE: Three views. FINDINGS: Bone mineralization normal. No acute fracture or dislocation identified. Well corticated ossific fragment seen adjacent to the lateral malleolus and lateral talus. Mild lateral soft tissue swelling noted. More ill-defined linear osseous fragment seen adjacent to the medial malleolus with some lucency through the tip of the medial malleolus best seen on the mortise view. There is no adj acent medial soft tissue swelling. Tibiotalar joint is intact. Mild spurring noted throughout the j oints of the ankle and foot. Small calcaneal spurs are present. IMPRESSION: 1. Age indeterminate, but possibly old, avulsion fractures of the ankle as described. Correlate wit h site of pain. 2. Arthritic changes.
[2024-03-04] MEDS: ROCEPHIN 1 GM VIAL IVP ONE (07:51)
[2024-03-04] MEDS: HUMULIN R (10ML) SUBCUT STA (08:20)
[2024-03-04] MEDS: ZOFRAN ODT PO STA (08:22)
[2024-03-04] MEDS: NORCO 10-325 PO STA (08:23)
[2024-03-04 08:28] LABS: SARS COV-2 RNA RAPID NAAT NEGATIVE (NEGATIVE)
[2024-03-04] MEDS: SODIUM CHLORIDE 1,000 ML IV ONE (08:28)
[2024-03-04] MEDS ORDERED: ZOFRAN 4 MG/2 ML IVP PRN (09:04)
[2024-03-04 10:00] VITALS: BMI 33.5
[2024-03-04] MEDS: HUMULIN R (10ML) SUBCUT PRN (11:24)
--- NOTE | 2024-03-04 12:27 | PCM ---
Date of Service Date Seen by Provider: 03/04/24 Time Seen by Provider: 12:00 Admit Day/Time Admission Date: 03/04/24 Admission Time: 07:45 Reason for Admission Chief Complaint: ZOE; UTI; FALL Hospital Provider Hospital [facility] History of Present Illness History of Present Illness: 63 yo female presented to the ER following a fall this am. Reports that she was standing at the sink in her kitchen and became weak/shaky and fell rolling her ankle. Ankle x-rays were negative for fracture or injury. Patient states she has felt weak over the past several days. Also reports urinary urgency and frequency. Denies any fever that she is aware of, no abd pain, n/v/d. UA was consistent of UTI and rocephin was given in ER. Creatinine was found to be elevated at 1.68 and last level was 0.7 back in December. Admitted to med/surg observation for ZOE and UTI. Case Discussed With Case Discussed With: Patient's case was discussed with the ER Physicians, Dr. Patton. [facility] Medical History Contusion T14.8XXA - Other injury of unspecified body region, initial encounter (ICD- 10) Malignant neoplasm of uterus C55 - Malignant neoplasm of uterus, part unspecified (ICD-10) Spondylolisthesis M43.10 - Spondylolisthesis, site unspecified (ICD-10) Surgical History History of tubal ligation Z98.51 - Tubal ligation status (ICD-10) Stomach Tumor Status post hysterectomy Z90.710 - Acquired absence of both cervix and uterus (ICD-10) Family History Mother CHF (congestive heart failure) Social History Smoking and tobacco status: Current every day smoker Tobacco type: e-cigarettes Alcohol intake: never Counseling given: No Counseling provided: none Substance use type: marijuana Counseling given: No Counseling provided: none Lynne/zoroastrianism: NONE Special lynne needs: No Agree to transfusion: Yes Adopted: Yes Caregiver/support person: No Household members: spouse Housing: condominium Marital status: M Lives independently: No Number of children: 2 Number of grandchildren: 3 Highest education level completed: 7th grade Financial difficulty paying for basics: hard Current occupational status: disabled Previous occupational history: facotry work in the past; has been on disability for 15 years Pets and animals: Yes (cat and a dog) Leisure activites: art History of recent travel: No Do you think of yourself as: straight/heterosexual Current gender identity: female Seatbelt use: always Drives intoxicated or rides with intoxicated heavy truck driver: No Water heater temperature set < 120 degrees: Yes Working smoke detector in home: Yes Fire extinguisher in home: Yes Carbon monoxide detector in home: No Firearms in home: Yes Firearms unloaded and locked: Yes Allergies Allergies Allergy/AdvReac Type Severity Reaction Status Date / Time aspirin AdvReac hives Verified 02/25/24 10:10 codeine AdvReac vomiting, Verified 02/25/24 10:10 headaches diazepam [From Valium] AdvReac increased Verified 02/25/24 10:10 anxiety and anger empagliflozin AdvReac Dizziness Verified 02/25/24 10:10 [From Jardiance] Penicillins AdvReac Rash Verified 02/25/24 10:10 succinylcholine AdvReac stopped Verified 02/25/24 10:10 breathing Current Medications Home Medications lancets 33 gauge ##1 08/08/18 [Rx Confirmed 03/04/24 Last Taken Unknown] gabapentin 300 mg capsule See Rx Instructions .Route .COMPLEX #60 caps 07/09/23 [Rx Confirmed 03/04/24 Last Taken Unknown] hydrochlorothiazide 12.5 mg capsule 12.5 mg PO QAM #30 caps 08/10/23 [Rx Confirmed 03/04/24 Last Taken Unknown] rosuvastatin 20 mg tablet See Rx Instructions .Route .COMPLEX #90 tabs 08/10/23 [Rx Confirmed 03/04/24 Last Taken Unknown] alcohol swabs (Alcohol Pads) 1 pad topical DAILY ##1 08/17/23 [Rx Confirmed 03/04/24 Last Taken Unknown] blood sugar diagnostic (Blood Glucose Test strips) ##1 08/17/23 [Rx Confirmed 03/04/24 Last Taken Unknown] blood sugar diagnostic (OneTouch Ultra Test strips) #100 ea 08/17/23 [Rx Confirmed 03/04/24 Last Taken Unknown] pen needle, diabetic 33 gauge x 5/32" (Comfort EZ Pen [place]) #100 ea 08/17/23 [Rx Confirmed 03/04/24 Last Taken Unknown] meloxicam 15 mg tablet See Rx Instructions .Route .COMPLEX #30 tabs 08/27/23 [Rx Confirmed 03/04/24 Last Taken Unknown] montelukast 10 mg tablet See Rx Instructions .Route .COMPLEX #30 tabs 10/22/23 [Rx Confirmed 03/04/24 Last Taken Unknown] tizanidine 4 mg tablet See Rx Instructions .Route .COMPLEX #90 tabs 11/05/23 [Rx Confirmed 03/04/24 Last Taken Unknown] topiramate 100 mg tablet 100 mg PO QDAY #90 tabs 11/26/23 [Rx Confirmed 03/04/24 Last Taken Unknown] semaglutide 2 mg/dose (8 mg/3 mL) subcutaneous pen injector 2 mg (0.75 mL) subcut QWEEK #3 mL 12/06/23 [Rx Confirmed 03/04/24 Last Taken Unknown] metformin 1,000 mg tablet See Rx Instructions .Route .COMPLEX #60 tabs 02/06/24 [Rx Confirmed 03/04/24 Last Taken Unknown] aripiprazole 10 mg tablet 10 mg PO QAM #90 tabs 02/25/24 [Rx Confirmed 03/04/24 Last Taken Unknown] dextroamphetamine-amphetamine 10 mg tablet (Adderall) 10 mg PO QDAY #30 tabs 02/25/24 [Rx Confirmed 03/04/24 Last Taken Unknown] dextroamphetamine-amphetamine 20 mg tablet (Adderall) 20 mg PO QAM #30 tabs 02/25/24 [Rx Confirmed 03/04/24 Last Taken Unknown] dextroamphetamine-amphetamine 20 mg tablet (Adderall) 20 mg PO QAM #30 tabs 02/25/24 [Rx Confirmed 03/04/24 Last Taken Unknown] dextroamphetamine-amphetamine 20 mg tablet (Adderall) 20 mg PO QAM #30 tabs 02/25/24 [Rx Confirmed 03/04/24 Last Taken Unknown] fluvoxamine 100 mg tablet 150 mg (1.5 x 100 mg) PO QHS #135 tabs 02/25/24 [Rx Confirmed 03/04/24 Last Taken 03/03/24 22:00 150 mg] hydroxyzine HCl 50 mg tablet 25 - 50 mg (0.5 - 1 x 50 mg) PO QHS PRN insomnia #30 tabs 02/25/24 [Rx Confirmed 03/04/24 Last Taken Unknown] trazodone 150 mg tablet 150 mg PO QHS PRN insomnia #90 tabs 02/25/24 [Rx Confirmed 03/04/24 Last Taken Unknown] carvedilol 12.5 mg tablet See Rx Instructions .Route .COMPLEX #60 tabs 02/26/24 [Rx Confirmed 03/04/24 Last Taken 03/03/24 23:00 12.5] losartan 100 mg tablet 100 mg PO DAILY #30 tabs 03/03/24 [Rx Confirmed 03/04/24 Last Taken Unknown] dextroamphetamine-amphetamine 10 mg tablet (Adderall) 10 mg PO BEDTIME 03/04/24 [History Confirmed 03/04/24 Last Taken 03/03/24 22:00 10 mg] dextroamphetamine-amphetamine 10 mg tablet (Adderall) 20 mg PO QDAY 03/04/24 [History Confirmed 03/04/24 Last Taken 03/04/24 08:00 20 mg] insulin glargine 100 unit/mL (3 mL) subcutaneous pen (Lantus Solostar U-100 Insulin) 15 unit subcut QPM 03/04/24 [History Confirmed 03/04/24 Last Taken Unknown] Home Acetaminophen (Acetaminophen 325 Mg Tablet) 650 mg PO Q4H PRN PRN Reason: Mild Pain Last Admin: 03/04/24 12:28 Dose: 650 mg Sodium Chloride (Sodium Chloride) 1,000 mls @ 125 mls/hr IV ONCE ONE Stop: 03/04/24 16:00 Last Admin: 03/04/24 08:28 Dose: 125 mls/hr CEFTRIAXONE/D5W 1 GM PREMIX (Rocephin 1 Gm/50 Ml D5w) 1 gm in 50 mls @ 75 mls/hr IV DAILY NADINE Stop: 03/08/24 08:59 Sodium Chloride (Sodium Chloride) 1,000 mls @ 125 mls/hr IV .Q8H NADINE Insulin Human Regular (Insulin Regular, Human 100 Unit/Ml (10ml) Vial) 0 unit SUBCUT PRN PRN; Protocol PRN Reason: Hyperglycemia Last Admin: 03/04/24 11:24 Dose: 10 unit Ondansetron HCl (Ondansetron Hcl/Pf 4 Mg/2 Ml Sdv) 4 mg IVP Q6H PRN PRN Reason: Nausea / Vomiting Discontinued Medications Acetaminophen (Acetaminophen 325 Mg Tablet) 650 mg PO ONCE ONE Stop: 03/04/24 06:48 Last Admin: 03/04/24 07:28 Dose: 650 mg Hydrocodone Bitart/Acetaminophen (Hydrocodone Bit/Acetaminophen 10/325 Mg Tablet) 1 tab PO ONCE STA Stop: 03/04/24 07:59 Last Admin: 03/04/24 08:23 Dose: 1 tab Ceftriaxone Sodium (Ceftriaxone 1 Gm Vial) 1 gm IVP ONCE ONE Stop: 03/04/24 07:44 Last Admin: 03/04/24 07:51 Dose: 1 gm Sodium Chloride (Sodium Chloride) 500 mls @ 500 mls/hr IV BOLUS ONE Stop: 03/04/24 07:50 Last Infusion: 03/04/24 08:31 Dose: Infused Insulin Human Regular (Insulin Regular, Human 100 Unit/Ml (10ml) Vial) 6 unit SUBCUT ONCE STA Stop: 03/04/24 08:05 Last Admin: 03/04/24 08:20 Dose: 6 unit Ondansetron HCl (Ondansetron Hcl 4 Mg Tab.Rapdis) 4 mg PO ONCE STA Stop: 03/04/24 08:01 Last Admin: 03/04/24 08:22 Dose: 4 mg Opioid Naive vs. Tolerant Does Patient Take Opioids?: Yes Is Patient Opioid Naive?: No What is Opioid Naive?: *Opioid Naive implies the patient is not already taking opioids or not chronically receiving opioids on a daily basis. *PRN dosing is not "usually" associated with tolerance. *Patients are at higher risk of over-sedation and aspiration. Is Patient Opioid Tolerant?: No What is Opioid Tolerant?: *Opioid Tolerance implies less than the expected response to an opioid. *Acquired tolerance is defined by the patient taking 60mg of oral morphine daily (or equianalgesic dose of another opioid) for 1 week or more. *Often associated with chronic pain. *May take more than usual dose to achieve desired pain control. Review of Systems Constitutional: Reports Weakness Head: Reports Normocephalic Eyes: Reports No symptoms Ears: Reports No symptoms Nose: Reports No symptoms Mouth: Reports No symptoms Throat: Reports No symptoms Cardiovascular: Reports No symptoms Respiratory: Reports No symptoms Gastrointestinal: Reports No symptoms Genitourinary: Reports Frequency and Other (urinary urgency) Musculoskeletal: Reports Other (ankle pain) Endocrine: Reports No symptoms Hematology: Reports No symptoms Immunology: Reports No symptoms Neurological: Reports No symptoms Psychiatric: Reports No symptoms Physical examination Most Recent Vital Signs: Most Recent Vital Signs Temperature 97.4 F L 03/04/24 09:46 Temperature Source Temporal Artery Scan 03/04/24 09:46 Temperature Source Infrared 03/04/24 06:30 Pulse Rate 82 03/04/24 09:46 Respiratory Rate 16 03/04/24 09:46 Blood Pressure 119/73 03/04/24 09:30 Blood Pressure Mean 88 03/04/24 09:30 Blood Pressure Left Arm 119/73 03/04/24 09:46 Blood Pressure Location Right Arm 03/04/24 09:30 Blood Pressure Position Supine 03/04/24 09:46 O2 Sat by Pulse Oximetry 95 03/04/24 09:46 Oxygen Delivery Method Room Air 03/04/24 11:00 Height 5 ft 9 in 03/04/24 09:46 Weight 227 lb 2 oz 03/04/24 09:46 Telemetry Type Remote Telemetry 03/04/24 10:31 Telemetry Monitoring Started 03/04/24 10:31 Telemetry Heart Rate 57 L 03/04/24 10:31 Telemetry SPO2 97 06/30/13 19:00 EKG UT Interval 0.25 H 03/04/24 10:31 EKG QRS Interval 0.07 03/04/24 10:31 Telemetry Strip Reading SB with 1 AVB 03/04/24 10:31 Appearance: Positive No Apparent Distress and Alert and Oriented x3 Skin: Positive Warm and Good Turgor HEENT: Positive Normocephalic and PERRLA Neck: Positive Supple and Midline Trachea Chest/Lungs: Positive Symmetrical With Equal Breath Sounds, Clear to Auscultation Bilaterally and Good Air Movement all 4 Lung Miranda Heart: Positive RRR and Pulses Normal GI/: Positive Soft, Nontender, Bowel Sounds Normal and No Distention Musculoskeletal: Positive Not Examined Extremities: Positive Intact Peripheral Pulses, Stable Joints Without Laxity and Good ROM in All Joints Neurological: Positive Sensation Intact, Motor intact, Alert, Oriented and Muscle Strength 5/5 in Upper and Lower Extremities Bilaterally Labs This Visit Labs This Visit: Labs This Visit 03/04/24 03/04/24 03/04/24 06:45 06:57 07:55 WBC 8.99 RBC 5.24 Hgb 14.2 Hct 44.3 MCV 84.5 MCH 27.1 MCHC 32.1 RDW Coeff of [place] 13.6 Plt Count 214 Immature Gran % (Auto) 0.8 Neut % (Auto) 62.3 Lymph % (Auto) 26.8 [place] % (Auto) 7.3 Eos % (Auto) 1.9 Baso % (Auto) 0.9 Neut # (Auto) 5.6 Lymph # (Auto) 2.4 [place] # (Auto) 0.7 Eos # (Auto) 0.2 Baso # (Auto) 0.1 Immature Gran # (Auto) 0.1 Sodium 132.6 L Potassium 4.11 Chloride 94.3 L Carbon Dioxide 25.5 Anion Gap 16.91 BUN 37.2 H Creatinine 1.68 H Estimated GFR (MDRD) 31.00 BUN/Creatinine Ratio 22.14 Glucose 451.8 H Calcium 9.27 Total Bilirubin 0.54 AST 26.3 ALT 19.9 Alkaline Phosphatase 84.9 Total Protein 7.09 Albumin 4.10 Globulin 2.99 Albumin/Globulin Ratio 1.37 Urine Color Yellow Urine Clarity Cloudy Urine pH 5.5 Ur Specific [place] 1.025 Urine Protein Negative Urine Glucose (UA) 2+ H Urine Ketones Negative Urine Blood Trace-intact H Urine Nitrite Positive H Urine Bilirubin Negative Urine Urobilinogen 0.2 Ur Leukocyte Esterase Negative Urine Microscopic RBC 5-10 Urine Microscopic WBC 5-10 Ur Squamous Epith Cells 10-20 Urine Bacteria 4+ Urine Mucus Trace SARS CoV-2 RNA Rapid [place] Negative Imaging Imaging: -Chest x-ray shows no acute cardiopulmonary disease. -X-ray of the right foot shows no acute fracture or dislocation. -X-ray of the right ankle shows no acute fractures or dislocation. Small old avulsion fractures noted. Bone spur on the back of her calcaneus noted. Review Statement Review Statement: I have independently reviewed and interpreted the labs/EKGs/imaging that were o rdered by the ER provider. I have reviewed all outside records that are available currently in our EMR including imaging/notes/labs from previous visits. Plan Plan: 1. ZOE - NS@125mL/hr, avoid nephrotoxins/hypotension 2. UTI - rocephin 1G Q24H, urine culture pending 3. Hyponatremia - mild, likely due to #1, continue NS@125mL/hr 4. DM2 - chronic, ADA diet, accuchecks qid with ssi, continue home insulin dose 5. Hypertension - chronic, hold home medications due to low BP 6. Chronic pain - continue home regimen DVT Prophylaxis: Ambulation Time Spent: Greater than 80 minutes spent with patient, 50% of the time spent with this patient was devoted to counseling and coordination of care. Advanced Care Plannin minutes spent discussing advance care planning. Smoking Cessation: 3-10 minutes spent discussing smoking cessation. Disposition: Admit to: Med/Surg Observation Discussed Plan of Care with Dr. Vaishali Melendez. Medications Medication Orders: Medications Ordered Category Date Time Status Acetaminophen [Tylenol] Meds 03/04/24 09:04 Active 650 mg PO Q4H PRN Ceftriaxone/D5w 1 gm Premix [Rocephin 1 gm/50 ml D5w] Meds 03/05/24 09:00 Active 1 gm in 50 ml IV DAILY Insulin Regular, Human [Humulin R (10Ml)] Meds 03/04/24 09:04 Active See Protocol SUBCUT PRN PRN Ondansetron HCl/Pf [Zofran 4 mg/2 ml] Meds 03/04/24 09:04 Active 4 mg IVP Q6H PRN Sodium Chloride 0.9% [Sodium Chloride] 1,000 ml Meds 03/04/24 09:30 Active IV 125 mls/hr Sodium Chloride 0.9% [Sodium Chloride] 1,000 ml Meds 03/04/24 08:01 Active IV ONCE
[2024-03-04] MEDS: TYLENOL PO PRN (12:28)
[2024-03-04] MEDS: SODIUM CHLORIDE 1,000 ML IV SCH (15:02)
[2024-03-04] MEDS: ZANAFLEX PO PRN (16:44)
[2024-03-04] MEDS: COREG PO SCH (16:57)
[2024-03-04] MEDS: LANTUS SUBCUT SCH (17:16)
[2024-03-04] MEDS ORDERED: ATARAX PO PRN (21:00)
[2024-03-04] MEDS ORDERED: ZANAFLEX PO PRN (21:00)
[2024-03-04] MEDS: DESYREL PO PRN (21:01)
[2024-03-04] MEDS: NEURONTIN PO SCH (21:01)
[2024-03-04] MEDS: TORADOL IVP PRN (21:03)
[2024-03-04] MEDS: DEXTROAMPHETAMINE AMPHETAMINE 10 MG PO SCH (21:07)
[2024-03-05 05:57] LABS: BASOPHILS # (AUTO) 0.1 K/uL (0-0.2); BASOPHILS % (AUTO) 0.6 % (0.0-3.0); EOSINOPHILS # (AUTO) 0.2 K/ul (0.0-0.7); EOSINOPHILS % (AUTO) 2.6 % (0.0-7.0); HEMATOCRIT 41.3 % (37.0-47.0); IMMATURE GRANULOCYTE # (AUTO) 0.1 (0.0-1.0); IMMATURE GRANULOCYTE % (AUTO) 0.6 % (0.0-5.0); LYMPHOCYTES # (AUTO) 2.1 K/uL (0.60-3.4); MEAN CORPUSCULAR HEMOGLOBIN 27.1 pg (27.0-31.0); MEAN CORPUSCULAR HGB CONC 31.5 (31.8-35.4); MONOCYTES # (AUTO) 0.7 K/uL (0.4-2.0); MONOCYTES % (AUTO) 8.3 (0-10); NEUTROPHILS # (AUTO) 4.9 K/ul (2.0-6.9); NEUTROPHILS % (AUTO) 61.9 % (42.2-75.2); PLATELET COUNT 169 10^3/uL (140-440); RDW COEFFICIENT OF VARIATION 13.3 % (11.6-14.8); WHITE BLOOD COUNT 7.99 K/ul (4.6-10.2)
[2024-03-05 06:06] LABS: ALBUMIN 3.45 g/dL (3.5-5.0); ALKALINE PHOSPHATASE 84.1 U/L (53-141); ASPARTATE AMINO TRANSFERASE 18.7 U/L (14-36); BILIRUBIN,TOTAL 0.46 mg/dL (0.2-1.3); BLOOD UREA NITROGEN 30.7 mg/dL (7-17); CALCIUM 8.41 mg/dL (8.4-10.2); CARBON DIOXIDE 27.6 mmol/L (22-30.0); CHLORIDE 107.2 mmol/L (98-107); CREATININE 1.05 mg/dL (0.60-1.30); GLUCOSE 236.4 mg/dL (74-106); POTASSIUM 4.5 mmol/L (3.5-5.1); SODIUM 138.8 mmol/L (134.5-145); TOTAL PROTEIN 6.27 g/dL (6.3-8.2)
[2024-03-05] MEDS: CRESTOR PO SCH (08:24)
[2024-03-05] MEDS: TOPAMAX PO SCH (08:25)
[2024-03-05] MEDS: COZAAR PO SCH (08:25)
[2024-03-05] MEDS: DEXTROAMPHETAMINE AMPHETAMINE 10 MG PO SCH (09:00)
--- NOTE | 2024-03-05 09:38 | DCSUM ---
Admission Date Admission Date: 03/04/24 Discharge Date Discharge Date: 03/05/24 Admission Diagnosis Admission Diagnosis: 1. ZOE 2. UTI 3. Hyponatremia 4. DM2 5. Hypertension 6. Chronic pain Discharge Diagnosis Discharge Diagnosis: 1. ZOE - Resolved 2. UTI - Urine culture pending 3. Hyponatremia - Resolved 4. DM2 - chronic, stable 5. Hypertension - chronic, stable 6. Chronic pain Hospital Provider Hospital Provider: ZACKERY WILSON, [facility] Summary of History and Physical Summary of History and Physical: 63 yo female presented to the ER following a fall this am. Reports that she was standing at the sink in her kitchen and became weak/shaky and fell rolling her ankle. Ankle x-rays were negative for fracture or injury. Patient states she has felt weak over the past several days. Also reports urinary urgency and frequency. Denies any fever that she is aware of, no abd pain, n/v/d. UA was consistent of UTI and rocephin was given in ER. Creatinine was found to be elevated at 1.68 and last level was 0.7 back in December. Admitted to med/surg observation for ZOE and UTI. Hospital Course Subjective: During stay, patient was treated for ZOE with NS@125mL/hr. Renal function returned to normal limits. Sodium was also low and is now up to 138. Patient was found to have UTI and was treated with rocephin. Culture showed growth of gram negative rods. Awaiting sensitivity. Rx for Keflex sent. Patient adamant to go home today. Has follow-up appointment with Naya Sheth tomorrow that was previously scheduled. Discussed with Naya and will follow urine culture results. Patient sprained L ankle with fall. Angel wrap applied. Discussed to ice and elevated as well as rotate tylenol and ibuprofen. No changes made to home medications. Vital Signs: Most Recent Vital Signs Temperature 98.6 F 03/05/24 05:45 Temperature Source Temporal Artery Scan 03/05/24 05:45 Temperature Source Infrared 03/04/24 06:30 Pulse Rate 110 H 03/05/24 08:05 Respiratory Rate 20 03/05/24 08:05 Blood Pressure 158/84 H 03/05/24 08:05 Blood Pressure Mean 108 03/05/24 08:05 Blood Pressure Left Arm 119/73 03/04/24 09:46 Blood Pressure Location Left Arm 03/05/24 08:05 Blood Pressure Position Sitting 03/05/24 08:05 O2 Sat by Pulse Oximetry 96 03/05/24 05:45 Oxygen Delivery Method Room Air 03/05/24 08:05 Height 5 ft 9 in 03/04/24 12:15 Weight 227 lb 2 oz 03/04/24 12:15 Telemetry Type Remote Telemetry 03/05/24 07:00 Telemetry Monitoring Continues 03/05/24 07:00 Telemetry Heart Rate 94 03/05/24 07:00 Telemetry SPO2 97 06/30/13 19:00 EKG MN Interval 0.16 03/05/24 07:00 EKG QRS Interval 0.08 03/05/24 07:00 Telemetry Strip Reading SR 03/05/24 07:00 Lab Results Last 24 Hours: 03/05/24 05:30 WBC 7.99 RBC 4.80 Hgb 13.0 Hct 41.3 MCV 86.0 MCH 27.1 MCHC 31.5 L RDW Coeff of [place] 13.3 Plt Count 169 Immature Gran % (Auto) 0.6 Neut % (Auto) 61.9 Lymph % (Auto) 26.0 [place] % (Auto) 8.3 Eos % (Auto) 2.6 Baso % (Auto) 0.6 Neut # (Auto) 4.9 Lymph # (Auto) 2.1 [place] # (Auto) 0.7 Eos # (Auto) 0.2 Baso # (Auto) 0.1 Immature Gran # (Auto) 0.1 Sodium 138.8 Potassium 4.50 Chloride 107.2 H Carbon Dioxide 27.6 Anion Gap 8.50 BUN 30.7 H Creatinine 1.05 D Estimated GFR (MDRD) 53.00 BUN/Creatinine Ratio 29.23 Glucose 236.4 H D Calcium 8.41 Total Bilirubin 0.46 AST 18.7 ALT 15.0 Alkaline Phosphatase 84.1 Total Protein 6.27 L Albumin 3.45 L Globulin 2.82 Albumin/Globulin Ratio 1.22 Discharge Instructions Discharge Planning: Discharge Planning > 40 minutes If patient is discharged with left ventricular systolic dysfunction: NA Discharged with a beta seven? [] If no, why not? [] Discharged with an angel/arb? [] If no, why not? [] Diagnosis: Acute Kidney Injury, UTI, Ankle sprain Diet: Diabetic Activity: As tolerated Follow-up with your Primary Care Provider as scheduled Naya Sheth tomorrow at the Clinic as scheduled Medications: New Prescription: Keflex twice a day x 5 days, start tomorrow Continue your Home Medications as taking before You can alternate Tylenol and Ibuprofen for right foot/leg pain Elevated your legs and use an angel wrap to right foot/ankle Use ice to help alleviate pain Drink plenty of water to keep Kidneys hydrated You should discuss your tremors with your Primary Care Provider. Discharge Medications: Medications at Discharge (Home Meds & RX) lancets 33 gauge ##1 08/08/18 gabapentin 300 mg capsule See Rx Instructions .Route .COMPLEX #60 caps 07/09/23 hydrochlorothiazide 12.5 mg capsule 12.5 mg PO QAM #30 caps 08/10/23 rosuvastatin 20 mg tablet See Rx Instructions .Route .COMPLEX #90 tabs 08/10/23 alcohol swabs (Alcohol Pads) 1 pad topical DAILY ##1 08/17/23 blood sugar diagnostic (Blood Glucose Test strips) ##1 08/17/23 blood sugar diagnostic (OneTouch Ultra Test strips) #100 ea 08/17/23 pen needle, diabetic 33 gauge x 5/32" (Comfort EZ Pen [place]) #100 ea 08/17/23 meloxicam 15 mg tablet See Rx Instructions .Route .COMPLEX #30 tabs 08/27/23 montelukast 10 mg tablet See Rx Instructions .Route .COMPLEX #30 tabs 10/22/23 tizanidine 4 mg tablet See Rx Instructions .Route .COMPLEX #90 tabs 11/05/23 topiramate 100 mg tablet 100 mg PO QDAY #90 tabs 11/26/23 semaglutide 2 mg/dose (8 mg/3 mL) subcutaneous pen injector 2 mg (0.75 mL) subcut QWEEK #3 mL 12/06/23 metformin 1,000 mg tablet See Rx Instructions .Route .COMPLEX #60 tabs 02/06/24 aripiprazole 10 mg tablet 10 mg PO QAM #90 tabs 02/25/24 dextroamphetamine-amphetamine 10 mg tablet (Adderall) 10 mg PO QDAY #30 tabs 02/25/24 dextroamphetamine-amphetamine 20 mg tablet (Adderall) 20 mg PO QAM #30 tabs 02/25/24 dextroamphetamine-amphetamine 20 mg tablet (Adderall) 20 mg PO QAM #30 tabs 02/04 09/29 dextroamphetamine-amphetamine 20 mg tablet (Adderall) 20 mg PO QAM #30 tabs 02/25/24 fluvoxamine 100 mg tablet 150 mg (1.5 x 100 mg) PO QHS #135 tabs 02/25/24 hydroxyzine HCl 50 mg tablet 25 - 50 mg (0.5 - 1 x 50 mg) PO QHS PRN insomnia #30 tabs 02/25/24 trazodone 150 mg tablet 150 mg PO QHS PRN insomnia #90 tabs 02/25/24 carvedilol 12.5 mg tablet See Rx Instructions .Route .COMPLEX #60 tabs 02/26/24 losartan 100 mg tablet 100 mg PO DAILY #30 tabs 03/03/24 dextroamphetamine-amphetamine 10 mg tablet (Adderall) 10 mg PO BEDTIME 03/04/24 dextroamphetamine-amphetamine 10 mg tablet (Adderall) 20 mg PO QDAY 03/04/24 insulin glargine 100 unit/mL (3 mL) subcutaneous pen (Lantus Solostar U-100 Insulin) 15 unit subcut QPM 03/04/24 Discharge Plan Discharge Discharge Orders: Discharge Patient (ONCE); Ordered 03/05/24 Ordered By: ISAMAR JONES Activity Restrictions/Additional Instructions: Diagnosis: Acute Kidney Injury, UTI, Ankle sprain Diet: Diabetic Activity: As tolerated Follow-up with your Primary Care Provider as scheduled Naya Sheth tomorrow at the Clinic as scheduled Medications: New Prescription: Keflex twice a day x 5 days, start tomorrow Continue your Home Medications as taking before You can alternate Tylenol and Ibuprofen for right foot/leg pain Elevated your legs and use an angel wrap to right foot/ankle Use ice to help alleviate pain Drink plenty of water to keep Kidneys hydrated You should discuss your tremors with your Primary Care Provider. . Instructions: Ankle Sprain (GEN), Acute Kidney Injury (GEN), Urinary Tract Infection in Women (GEN), Fall Prevention (ED) Patient Disposition: HOME WITH FAMILY CARE Prescriptions: New cephalexin 500 mg capsule 500 mg PO BID 5 Days Qty: 10 0RF Continued (DME) lancets 1 EACH misc 1 ea MC DAILY Qty: 1 3RF gabapentin 300 mg capsule See Rx Instructions .ROUTE .COMPLEX Qty: 60 3RF Dose Instruction: TAKE ONE CAPSULE TWICE DAILY Rx Instructions: TAKE ONE CAPSULE TWICE DAILY rosuvastatin 20 mg tablet See Rx Instructions .ROUTE .COMPLEX Qty: 90 1RF Dose Instruction: TAKE ONE TABLET DAILY Rx Instructions: TAKE ONE TABLET DAILY meloxicam 15 mg tablet See Rx Instructions .ROUTE .COMPLEX Qty: 30 3RF Dose Instruction: TAKE ONE TABLET DAILY Rx Instructions: TAKE ONE TABLET DAILY montelukast 10 mg tablet See Rx Instructions .ROUTE .COMPLEX Qty: 30 3RF Dose Instruction: TAKE ONE TABLET AT BEDTIME Rx Instructions: TAKE ONE TABLET AT BEDTIME tizanidine 4 mg tablet See Rx Instructions .ROUTE .COMPLEX Qty: 90 3RF Dose Instruction: TAKE ONE TABLET THREE TIMES A DAY NEEDED FOR MUSCLE SPASMS Rx Instructions: TAKE ONE TABLET THREE TIMES A DAY NEEDED FOR MUSCLE SPASMS metformin 1,000 mg tablet See Rx Instructions .ROUTE .COMPLEX Qty: 60 1RF Dose Instruction: TAKE ONE TABLET TWICE DAILY Rx Instructions: TAKE ONE TABLET TWICE DAILY carvedilol 12.5 mg tablet See Rx Instructions .ROUTE .COMPLEX Qty: 60 2RF Dose Instruction: TAKE ONE TABLET TWICE DAILY MUST ADMINISTER WITH A MEAL/FOOD Rx Instructions: TAKE ONE TABLET TWICE DAILY MUST ADMINISTER WITH A MEAL/FOOD losartan 100 mg tablet 100 mg PO DAILY Qty: 30 1RF dextroamphetamine-amphetamine [Adderall] 10 mg tablet 10 mg PO BEDTIME dextroamphetamine-amphetamine [Adderall] 10 mg tablet 20 mg PO QDAY insulin glargine [Lantus Solostar U-100 Insulin] 100 unit/mL (3 mL) insulin pen 15 unit subcut QPM topiramate 100 mg tablet 100 mg PO QDAY Qty: 90 0RF aripiprazole 10 mg tablet 10 mg PO QAM Qty: 90 0RF fluvoxamine 100 mg tablet 150 mg PO QHS Qty: 135 0RF hydroxyzine HCl 50 mg tablet 25 - 50 mg PO QHS PRN (Reason: insomnia) Qty: 30 1RF trazodone 150 mg tablet 150 mg PO QHS PRN (Reason: insomnia) Qty: 90 0RF hydrochlorothiazide 12.5 mg capsule 12.5 mg PO QAM Qty: 30 1RF (DME) pen needle, diabetic [Comfort EZ Pen [place]] 33 gauge x 5/32" needle See Rx Instructions .ROUTE Qty: 100 0RF Rx Instructions: As directed alcohol swabs [Alcohol Pads] Pads, Medicated 1 pad topical DAILY Qty: 1 3RF (DME) Blood Glucose Test Strip 1 ea MC DAILY Qty: 1 3RF Rx Instructions: daily check of blood sugar (DME) OneTouch Ultra Test Strip See Rx Instructions .ROUTE Qty: 100 0RF Rx Instructions: once daily semaglutide 2 mg/dose (8 mg/3 mL) pen injector 2 mg subcut QWEEK Qty: 3 3RF Discontinued dextroamphetamine-amphetamine [Adderall] 20 mg tablet 20 mg PO QAM Qty: 30 0RF dextroamphetamine-amphetamine [Adderall] 20 mg tablet 20 mg PO QAM Qty: 30 0RF dextroamphetamine-amphetamine [Adderall] 10 mg tablet 10 mg PO QDAY Qty: 30 0RF dextroamphetamine-amphetamine [Adderall] 20 mg tablet 20 mg PO QAM Qty: 30 0RF Did you review [place] PROF[employer] OF [employer] for ALL controlled substances?: No Discussed opioids are addictive and Narcan is available by prescription or from pharmacy.: No Condition: Stable Referrals: NAYA SHETH APRN,[employer] [NURSE PRACTITIONER] - 03/06/24 10:30 am
[2024-03-05] MEDS: ROCEPHIN 1 GM/50 ML D5W 1 GM/50 ML BAG IV SCH (09:47)
[2024-03-05 09:51] VITALS: BP 132/75; PULSE 103; RESP 19; TEMP 98.1
[2024-03-05] MEDS ORDERED: MOTRIN PO PRN (10:09)
[2024-03-06] MEDS ORDERED: ABILIFY PO SCH (09:00)
== END 2024-03-05 11:45 | disposition home or self-care (01) ==
LOC: ED 06:29 → MEDSURG B 06:29
PROVIDERS: ADMIT Hospitalist; ATTEND Nurse Practitioner Family
DX: Z51.81 Encounter for therapeutic drug level monitoring; M77.31 Calcaneal spur, right foot; G89.29 Other chronic pain; N30.00 Acute cystitis without hematuria; E86.0 Dehydration; Z79.4 Long term (current) use of insulin; Z20.822 Contact with and (suspected) exposure to COVID-19; F17.290 Nicotine dependence, other tobacco product, uncomplicated; N17.9 Acute kidney failure, unspecified; E87.1 Hypo-osmolality and hyponatremia; Z79.84 Long term (current) use of oral hypoglycemic drugs; I10 Essential (primary) hypertension; S00.81XA Abrasion of other part of head, initial encounter; W19.XXXA Unspecified fall, initial encounter; Z79.899 Other long term (current) drug therapy; B96.89 Other specified bacterial agents as the cause of diseases classified elsewhere; S93.401A Sprain of unspecified ligament of right ankle, initial encounter; E11.65 Type 2 diabetes mellitus with hyperglycemia